=== PATIENT | female | born 1970 | race Two or more races ===

== ENCOUNTER 2018-07-15 12:53 | Emergency (ER) | payer SELFPAY ==
[~2018-07-15] VITALS: Ht 162.6 cm; Wt 74.8 kg
[2018-07-15] MEDS ORDERED: NKM (13:07)
[2018-07-15 13:27] VITALS: BP 140/74
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
[2018-07-15] MEDS ORDERED: IBUPROFEN600 MG ORAL (14:19)
[2018-07-15] MEDS ORDERED: CYCLOBENZAPRINE10 MG ORAL (14:19)
[2018-07-15 14:27] VITALS: BP 145/74
--- NOTE | 2018-07-15 14:29 | NUR ---
ED Discharge Note: Patient is cleared to be discharged per ERMD. Patient awake, alert, oriented x 4. D/C instruction and prescriptions given to patient. All questions were answered. Patient ambulating out with steady gait with all her belongings.
--- NOTE | 2018-07-15 15:31 | Diagnostic Imaging Report ---
Indication: Foot Pain Comparison: None Findings: 3 views of the right foot were obtained. No acute fractures, malalignment, erosions or periostitis are identified. Moderate arthrosis of the first MTP joint demonstrated with joint space narrowing and osteophytes. There is a plantar calcaneal spur present. Soft tissues are unremarkable. Impression: No acute findings.
== END 2018-07-15 14:27 | disposition home or self-care (01) ==
LOC: EMR 13:41
DX: S00.93XA Contusion of unspecified part of head, initial encounter (principal); S40.019A Contusion of unspecified shoulder, initial encounter; M25.571 Pain in right ankle and joints of right foot; V43.52XA Car driver injured in collision with other type car in traffic accident, initial encounter; Y92.410 Unspecified street and highway as the place of occurrence of the external cause
CPT/HCPCS: 99283

== ENCOUNTER 2018-09-28 15:18 | Emergency (ER) | payer SELFPAY ==
[~2018-09-28] VITALS: Ht 162.6 cm; Wt 76.2 kg
[~2018-09-28 15:18] MED LIST: CYCLOBENZAPRINE10 MG ORAL; IBUPROFEN600 MG ORAL; NKM
[2018-09-28 15:40] VITALS: BP 182/85
--- NOTE | 2018-09-28 15:40 | NUR ---
ED Nurse Note: Pt from home walked in due to N/V/D x 1 days. Per pt, she was out of town yesterday and went to [place]. Denies blood in her stools. AAO x4, ambulatory. Good Skin turgor. Family memebr at the bed side.
--- NOTE | 2018-09-28 15:50 | NUR ---
ED Nurse Note: Collected blood/urine then sent.
[2018-09-28] MEDS ORDERED: Metoclopramide 10mg/2ml Inj IVP ONE ×2 (16:00→22:15)
[2018-09-28 16:27] LABS: APPEARANCE,URINE CLOUDY; BILIRUBIN, URINE 1+ (NEGATIVE); COLOR,URINE ORANGE; GLUCOSE, URINE (UA) 4+ (NEGATIVE); HEMATOCRIT 40.9 % (37.0-47.0); HEMOGLOBIN 12.9 G/DL (12.0-16.0); KETONES,URINE 4+ (NEGATIVE); LEUKOCYTE ESTERASE ,URINE 1+ (NEGATIVE); MEAN CORPUSCULAR VOLUME 68 FL (80-99); NITRITE,URINE NEGATIVE (NEGATIVE); PH,URINE 6 (4.5-8.0); PLATELET COUNT 356 K/UL (150-450); PROTEIN,URINE 3+ (NEGATIVE); RED CELL DISTRIBUTION WIDTH 16.7 % (11.6-14.8); UROBILINOGEN,URINE 1 MG/DL (0.0-1.0)
[2018-09-28 16:29] LABS: WHITE BLOOD COUNT 24.7 K/UL (4.8-10.8)
[2018-09-28] MEDS ORDERED: Isovue-300 100ml vial INJ PRN (16:30)
[2018-09-28 16:43] LABS: ALANINE AMINOTRANSFERASE 20 U/L (12-78); ALBUMIN 3.9 G/DL (3.4-5.0); ALBUMIN/GLOBULIN RATIO 0.8 (1.0-2.7); ALKALINE PHOSPHATASE 84 U/L (46-116); ANION GAP 11 mmol/L (5-15); ASPARTATE AMINO TRANSFERASE 25 U/L (15-37); BILIRUBIN,TOTAL 0.6 MG/DL (0.2-1.0); BLOOD UREA NITROGEN 30 mg/dL (7-18); CALCIUM 9.3 MG/DL (8.5-10.1); CARBON DIOXIDE 31 MMOL/L (21-32); CHLORIDE 91 MMOL/L (98-107); SODIUM 133 MMOL/L (136-145)
[2018-09-28 16:47] LABS: POTASSIUM 2.7 MMOL/L (3.5-5.1)
[2018-09-28 16:51] LABS: INR 0.9 (0.9-1.1)
[2018-09-28 17:48] VITALS: BP 158/61
--- NOTE | 2018-09-28 18:59 | NUR ---
ED Nurse Note: Pt taken to CT via wheelchair.
--- NOTE | 2018-09-28 19:11 | NUR ---
HAND-OFF: Report given to Matilda CHEN.
--- NOTE | 2018-09-28 19:30 | NUR ---
ED Nurse Note: Recieved report from am nurse to resume care, pt is currently in imaging department obtaining ct-scan, will resume care of pt and continue to closely monitor.
[2018-09-28 20:00] VITALS: BP 166/72
[2018-09-28] MEDS ORDERED: metroNIDAZOLE 500mg tab ORAL ONE (20:15)
[2018-09-28] MEDS ORDERED: Cefepime HCl 2 GM in D5W 55 ML IVPB ONE (20:15)
--- NOTE | 2018-09-28 20:48 | Emergency Room Report ---
History of Present Illness General Chief Complaint: Nausea, Vomiting, and Diarrhea Source: Patient Present Illness HPI 48-year-old female with no significant past medical history here complaining of acute onset of 1 day of epigastric abdominal pain and multiple bouts of nonbloody emesis. Patient is rating her epigastric pain a 10 out of 10 without radiation. Reports that her symptoms started after she came back from her trip to [place]. Denies fever and chills, shortness of breath, palpitation, headache and dizziness. Denies having her symptoms starting after eating any meals denies drinking alcohol, drug use however is a heavy tobacco smoker. Denies abnormal uterine bleedings patient reports that she is currently on her menses. Has had regular menses. Denies . Patient is actively vomiting and in mild distress. Denies any recent travel outside the country and sick contact. Denies urinary frequency, dysuria, hematuria, flank pain. Denies any past surgical history Allergies: Coded Allergies: No Known Allergies (Unverified , 07/15/18) Patient History Past Medical History: see triage record Past Surgical History: unable to obtain Pertinent Family History: none Last Menstrual Period: 09/28/18 Now: No Immunizations: UTD Reviewed Nursing Documentation: PMH: Agreed; PSxH: Agreed Nursing Documentation-PMH Past Medical History: No Stated History Review of Systems All Other Systems: negative except mentioned in HPI Physical Exam Vital Signs Date Time Temp Pulse Resp B/P (MAP) Pulse Ox O2 Delivery O2 Flow Rate FiO2 09/28/18 15:30 98.4 85 15 185/80 (115) 99 Room Air Sp02 EP Interpretation: reviewed, normal General Appearance: alert, GCS 15, mild distress Head: normocephalic, atraumatic Eyes: bilateral eye normal inspection, bilateral eye PERRL ENT: hearing grossly normal, normal pharynx, no angioedema Neck: normal inspection, full range of motion, supple Respiratory: normal inspection, chest non-tender, lungs clear, normal breath sounds, no rhonchi Cardiovascular #1: normal inspection, normal peripheral pulses, regular rate, rhythm, no edema, no gallop, no murmur Gastrointestinal: normal bowel sounds, non tender, soft, no organomegaly, no peritonitis, no bruit, non-distended, no guarding, no hernia, other - Negative McBurney's, Hernandez's, Rovsing sign Rectal: deferred Genitourinary: no CVA tenderness Musculoskeletal: normal inspection, back normal, digits/nails normal Neurologic: normal inspection, alert, oriented x3, motor strength/tone normal Psychiatric: normal inspection, judgement/insight normal Skin: no rash Lymphatic: normal inspection, no adenopathy Medical Decision Making PA Attestation All diagnoses and treatment plans were reviewed and discussed with my supervising physician Dr. Brennan Diagnostic Impression: Primary Impression: Elevated WBC count Additional Impressions: Hypokalemia UTI (urinary tract infection) ER Course 48-year-old female with no significant past medical history here complaining of acute onset of 1 day of epigastric abdominal pain and multiple bouts of nonbloody emesis. Patient is rating her epigastric pain a 10 out of 10 without radiation. Reports that her symptoms started after she came back from her trip to [place]. Denies fever and chills, shortness of breath, palpitation, headache and dizziness. Denies having her symptoms starting after eating any meals denies drinking alcohol, drug use however is a heavy tobacco smoker. Denies abnormal uterine bleedings patient reports that she is currently on her menses. Has had regular menses. Denies . Patient is actively vomiting and in mild distress. Denies any recent travel outside the country and sick contact. Denies urinary frequency, dysuria, hematuria, flank pain. Denies any past surgical history Ddx considered but are not limited to: appendicitis, cholecystis, gastritis, gastroenteritis, UTI, pyelonephritis, SBO, diverticulitis, influenza with GI manifestation, LA, complication with , elevated white blood count, hypokalemia Vital signs: are WNL, pt. is afebrile H&PE are most consistent with: Hypokalemia, elevated white blood count, UTI patient was explained that her UTI could be the source of her elevated white blood count and is being treated for. ORDERS: abdominal CT, abdominal pain set, EKG, ED INTERVENTIONS: Cefepime, Flagyl, NS bolus, Zofran, Reglan, Pepcid I spoke to the patient noted to be admitted due to elevated white blood count however she did not want to be admitted we gave her antibiotics and monitor her symptoms however all scanning was negative in order to find the source of her elevated white blood count she was advised to be admitted however she refused she can be monitored by her primary care provider in terms of follow-up and take oral antibiotics patient to be discharged in stable at time of discharge. wbc 24, potassium 2.7 EKG Diagnostic Results Rate: normal Rhythm: NSR ST Segments: no acute changes Other Impression no U waves Chest X-Ray Diagnostic Results Chest X-Ray Diagnostic Results : Chest X-Ray Ordered: Yes # of Views/Limited/Complete: 1 View Indication: Other EP Interpretation: Yes PA Xray: Interpretation reviewed, by supervising MD, and agrees with findings. Interpretation: no consolidation, no effusion, no pneumothorax Impression: No acute disease Electronically Signed by: Koko Weems PA-C CT/MRI/US Diagnostic Results CT/MRI/US Diagnostic Results : Imaging Test Ordered: Abdominal CT with contrast Impression Esophagitis, uterine fibroids, accidental finding of adrenal mass in the right side Last Vital Signs Date Time Temp Pulse Resp B/P (MAP) Pulse Ox O2 Delivery O2 Flow Rate FiO2 09/28/18 17:48 98.6 80 16 158/61 98 Room Air Disposition: HOME, SELF-CARE Condition: Stable Referrals: NOT CHOSEN IPA/MD,REFERRING (PCP) Patient Instructions: Nausea and Vomiting, Adult, [id number], Urinary Tract Infection, [id number] Additional Instructions: Take medication as directed follow-up with [facility] regarding her fibroids, 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 If worsening symptoms return to the emergency room at this time the source of your elevated white blood count is most likely secondary to your urinary tract infection you are advised to be admitted to the hospital however you were given antibiotics to treat possible infection and stable to be discharged at this time. Return to the emergency room with worsening symptoms. Koko Almodovar Sep 28, 2018 20:48
[2018-09-28 20:56] LABS: HEMATOCRIT 36.5 % (37.0-47.0); HEMOGLOBIN 11.7 G/DL (12.0-16.0); MEAN CORPUSCULAR VOLUME 68 FL (80-99); PLATELET COUNT 316 K/UL (150-450); RED BLOOD COUNT 5.35 M/UL (4.20-5.40); RED CELL DISTRIBUTION WIDTH 16.8 % (11.6-14.8); WHITE BLOOD COUNT 20.3 K/UL (4.8-10.8)
[2018-09-28 21:11] LABS: INR 0.9 (0.9-1.1)
[2018-09-28 21:12] LABS: CREATINE KINASE 246 U/L (26-308)
[2018-09-28 22:00] VITALS: BP 169/88
[2018-09-28] MEDS ORDERED: REGLAN10 MG ORAL (22:14)
[2018-09-28] MEDS ORDERED: CEPHALEXIN500 MG ORAL (22:14)
--- NOTE | 2018-09-28 22:15 | NUR ---
ED Nurse Note: Pt continues to rest in bed, having vomiting intermittently and b/p increasing, pt denies pain just nausea, no cp, no sob, iv site patent, pt resting in bed quietly, repeat labs drawn and sent as ordered, will continue to monitor while waiting for results and dispo information.
[2018-09-28] MEDS ORDERED: Metoclopramide 10mg/2ml Inj ONE (22:40)
[2018-09-29] VITALS: BP 155/84
--- NOTE | 2018-09-29 | NUR ---
ER DISCHARGE NOTE: Patient is cleared to be discharged per ERMD, pt is aox4, on room air, with stable vital signs. pt was given dc and prescription instructions, pt was able to verbalize understanding, pt id band and iv site removed without complications. pt is able to ambulate with steady gait. pt took all belongings.
--- NOTE | 2018-09-29 14:06 | Diagnostic Imaging Report ---
Indication: Chest pain Technique: One view of the chest Comparison: none Findings: Lungs and pleural spaces are clear. Heart size is normal. Impression: No acute process
--- NOTE | 2018-09-29 14:21 | Diagnostic Imaging Report ---
Clinical Indication: Abdominal pain, nausea, vomiting, diarrhea Technique: Patient given oral contrast. IV administration nonionic contrast. Venous phase spiral acquisition obtained through the abdomen and pelvis. Multiplanar reconstructions were generated. Total dose length product 957.88 mGycm. CTDIvol(s) 15.91 mGy. Dose reduction achieved using automated exposure control Comparison: none Findings: The appendix is normal. There are a few colonic diverticula. No evidence of diverticulitis. No small bowel distention or small bowel wall thickening. There is equivocal mild wall thickening of the distal esophagus. The stomach and duodenum are unremarkable. The liver is mildly hypoattenuating, consistent with fatty change. The gallbladder, bile ducts, pancreas, spleen, left adrenal are unremarkable. There is a 2.1 cm right adrenal mass. This demonstrates nonspecific attenuation. There are bilateral renal cysts. There are also bilateral subcentimeter low-attenuation renal lesions which are too small to characterize. No renal or ureteral calculi, hydronephrosis, or hydroureter demonstrated. The uterus is somewhat enlarged. It contains a 4.4 cm low-attenuation mass. In the left side of the myometrium. No adnexal mass. The ovaries are unremarkable. The included lung bases are clear. The bones demonstrate degenerative spondylosis changes of the lumbosacral junction. Impression: No acute abnormality Mild distal esophageal wall thickening, could indicate esophagitis. Consider endoscopy Hypoattenuating liver consistent with fatty change 2.1 cm right adrenal mass. Most likely a benign adenoma. Recommend further evaluation with adrenal protocol MRI for CT 4.4 cm low-attenuation mass within the uterine myometrium on the left, probably a degenerated fibroid Bilateral renal cysts. Bilateral subcentimeter low-attenuation renal lesions, too small to characterize, most likely benign simple cysts. No further follow-up necessary Other findings as noted, including degenerative lumbosacral spondylosis This agrees with the preliminary interpretation provided overnight by Dr. Lee The CT scanner at [facility] is accredited by the [employer] and the scans are performed using protocols designed to limit radiation exposure to as low as reasonably achievable to attain images of sufficient resolution adequate for diagnostic evaluation.
== END 2018-09-29 | disposition home or self-care (01) ==
LOC: EMR 16:10
DX: D72.829 Elevated white blood cell count, unspecified (principal); E87.6 Hypokalemia; N39.0 Urinary tract infection, site not specified; R11.2 Nausea with vomiting, unspecified; R10.13 Epigastric pain; R11.10 Vomiting, unspecified
CPT/HCPCS: 36415; 71045; 74177; 80053; 80307; 81003; 81025; 82550; 83605; 83690; 84484; 85007; 85025; 85610; 85730; 86850; 86900; 86901; 87040; 87086; 87181; 93005; 96361; 96365; 96375; 96376; 99284; G0480; J2405; J2765; Q9967; S0028; 80329; J8499

== ENCOUNTER 2018-10-01 23:27 | Inpatient (IN) | payer MEDICAID ==
[~2018-10-01] VITALS: Ht 162.6 cm; Wt 71.8 kg
[~2018-10-01 23:27] MED LIST changes: +CEPHALEXIN500 MG ORAL; +REGLAN10 MG ORAL
[2018-10-01 23:45] VITALS: BP 137/85
--- NOTE | 2018-10-01 23:45 | NUR ---
ED Nurse Note: Patient walked in to ER c/o lower abdominal pain N/V/D. Stated that was here 3 days ago for the same reason, but left AMA because of family emergency. AAO x4, VSS at this time, skin is dry warm to touch. ER MD by bed side.
[2018-10-02] VITALS (7 sets, daily range): BP systolic 135–179; BP diastolic 82–98
[2018-10-02 00:27] LABS: BASOPHILS % (AUTO) 0.6 % (0.0-2.0); EOSINOPHILS % (AUTO) 0.3 % (0.0-3.0); HEMATOCRIT 45.4 % (37.0-47.0); HEMOGLOBIN 14.6 G/DL (12.0-16.0); LYMPHOCYTES % (AUTO) 27.2 % (20.0-45.0); MEAN CORPUSCULAR VOLUME 68 FL (80-99); MONOCYTES % (AUTO) 6.9 % (1.0-10.0); PLATELET COUNT 374 K/UL (150-450); RED BLOOD COUNT 6.64 M/UL (4.20-5.40); RED CELL DISTRIBUTION WIDTH 16.8 % (11.6-14.8); WHITE BLOOD COUNT 10.5 K/UL (4.8-10.8)
[2018-10-02 00:37] LABS: ALANINE AMINOTRANSFERASE 21 U/L (12-78); ALBUMIN 3.8 G/DL (3.4-5.0); ALBUMIN/GLOBULIN RATIO 0.8 (1.0-2.7); ALKALINE PHOSPHATASE 82 U/L (46-116); ANION GAP 12 mmol/L (5-15); ASPARTATE AMINO TRANSFERASE 18 U/L (15-37); BILIRUBIN,TOTAL 0.7 MG/DL (0.2-1.0); BLOOD UREA NITROGEN 20 mg/dL (7-18); CALCIUM 9.2 MG/DL (8.5-10.1); CARBON DIOXIDE 29 MMOL/L (21-32); CHLORIDE 91 MMOL/L (98-107); CREATININE 0.9 MG/DL (0.55-1.30); POTASSIUM 2.8 MMOL/L (3.5-5.1); SODIUM 133 MMOL/L (136-145)
--- NOTE | 2018-10-02 00:50 | Emergency Room Report ---
History of Present Illness General Chief Complaint: Vomiting Source: Patient Present Illness HPI 48-year-old female presents ED for evaluation. Walked in complaining of abdominal pain with vomiting. Was seen here on 09/28 for same problem. Was subsequently treated and discharged with antibiotics and nausea medicine. States that her nausea has not resolved and she is unable to take her medications. Denies fevers or chills. Denies chest pain. States pain is epigastric, burning, 5 out of 10, nonradiating. No other aggravating relieving factors. Denies any other associated symptoms Allergies: Coded Allergies: No Known Allergies (Unverified , 07/15/18) Patient History Past Medical History: none Past Surgical History: none Pertinent Family History: none Social History: Denies: smoking, alcohol use, drug use Last Menstrual Period: 09/28/18 Now: No Immunizations: UTD Reviewed Nursing Documentation: PMH: Agreed; PSxH: Agreed Nursing Documentation-PMH Past Medical History: No Stated History Review of Systems All Other Systems: negative except mentioned in HPI Physical Exam Vital Signs Date Time Temp Pulse Resp B/P (MAP) Pulse Ox O2 Delivery O2 Flow Rate FiO2 10/01/18 23:31 99.0 96 16 137/85 (102) 100 Room Air Sp02 EP Interpretation: reviewed, normal General Appearance: no apparent distress, alert, GCS 15, non-toxic Head: normocephalic, atraumatic Eyes: bilateral eye normal inspection, bilateral eye PERRL ENT: hearing grossly normal, normal pharynx, no angioedema, normal voice Neck: full range of motion, supple/symm/no masses Respiratory: chest non-tender, lungs clear, normal breath sounds, speaking full sentences Cardiovascular #1: regular rate, rhythm, no edema Cardiovascular #2: 2+ carotid (R), 2+ carotid (L), 2+ radial (R), 2+ radial (L) , 2+ dorsalis pedis (R), 2+ dorsalis pedis (L) Gastrointestinal: normal bowel sounds, non tender, soft, non-distended, no guarding, no rebound Rectal: deferred Genitourinary: normal inspection, no CVA tenderness Musculoskeletal: back normal, gait/station normal, normal range of motion, non- tender Neurologic: alert, oriented x3, responsive, motor strength/tone normal, sensory intact, speech normal Psychiatric: judgement/insight normal, memory normal, mood/affect normal, no suicidal/homicidal ideation Reflexes: 3+ bicep (R), 3+ bicep (L), 3+ tricep (R), 3+ tricep (L), 3+ knee (R) , 3+ knee (L) Lymphatic: no adenopathy Medical Decision Making Diagnostic Impression: Primary Impression: Intractable vomiting Qualified Codes: G43.A1 - Cyclical vomiting, intractable Additional Impression: Hypokalemia ER Course Hospital Course 48-year-old F presents to ED with epigastric pain with N/V. differential diagnosis: gastritis, dehydration, cyclical vomiting Clinical course Patient placed on stretcher. On diagnostic cardiac sonographer. After initial history and physical I ordered labs, IV fluids, zofran, pepicd Labs - no leukocytosis, K 2.8, LFTs normal attempted to replete potassium orally but patient continues to vomit. Reviewed EMR patient was seen here on 09/28 for similar presentation. Had significant leukocytosis at the time. Had a work-up which included chest x-ray and CT which were negative. UA positive for UTI. Positive THC Patient given additional medications here. Continues to vomit despite medication. Will admit. given rocephin for continued treatment of UTI diagnosed on prior visit Dr Pinto will admit this patient I feel this is a highly complex case requiring extensive working including EKG/ Rhythm strip, Xray/CT/US, Blood/urine lab work, repeat exams while in ED, and administration of strong opiates/narcotics for pain control, admission to hospital or close patient follow up. Diagnosis - intractable vomiting, hypokalemia Admitted to floor in serious condition Labs Test 10/02/18 00:00 White Blood Count 10.5 K/UL (4.8-10.8) Red Blood Count 6.64 M/UL (4.20-5.40) Hemoglobin 14.6 G/DL (12.0-16.0) Hematocrit 45.4 % (37.0-47.0) Mean Corpuscular Volume 68 FL (80-99) Mean Corpuscular Hemoglobin 22.1 PG (27.0-31.0) Mean Corpuscular Hemoglobin Concent 32.3 G/DL (32.0-36.0) Red Cell Distribution Width 16.8 % (11.6-14.8) Platelet Count 374 K/UL (150-450) Mean Platelet Volume 7.5 FL (6.5-10.1) Neutrophils (%) (Auto) 65.0 % (45.0-75.0) Lymphocytes (%) (Auto) 27.2 % (20.0-45.0) Monocytes (%) (Auto) 6.9 % (1.0-10.0) Eosinophils (%) (Auto) 0.3 % (0.0-3.0) Basophils (%) (Auto) 0.6 % (0.0-2.0) Sodium Level 133 MMOL/L (136-145) Potassium Level 2.8 MMOL/L (3.5-5.1) Chloride Level 91 MMOL/L (98-107) Carbon Dioxide Level 29 MMOL/L (21-32) Anion Gap 12 mmol/L (5-15) Blood Urea Nitrogen 20 mg/dL (7-18) Creatinine 0.9 MG/DL (0.55-1.30) Estimat Glomerular Filtration Rate > 60 mL/min (>60) Glucose Level 233 MG/DL (74-106) Calcium Level 9.2 MG/DL (8.5-10.1) Total Bilirubin 0.7 MG/DL (0.2-1.0) Aspartate Amino Transf (AST/SGOT) 18 U/L (15-37) Alanine Aminotransferase (ALT/SGPT) 21 U/L (12-78) Alkaline Phosphatase 82 U/L (46-116) Total Protein 8.4 G/DL (6.4-8.2) Albumin 3.8 G/DL (3.4-5.0) Globulin 4.6 g/dL Albumin/Globulin Ratio 0.8 (1.0-2.7) Lipase 116 U/L (73-393) Last Vital Signs Date Time Temp Pulse Resp B/P (MAP) Pulse Ox O2 Delivery O2 Flow Rate FiO2 10/01/18 23:45 99.0 16 137/85 100 Room Air 10/01/18 23:45 96 Status: improved Disposition: ADMITTED INPATIENT Condition: Serious Referrals: NOT CHOSEN IPA/,REFERRING (PCP) Otoniel Capps MD Oct 02, 2018 00:50
--- NOTE | 2018-10-02 01:02 | NUR ---
ED Nurse Note: Administered 40 mEq of potassium,but patient was not able to hold it.
--- NOTE | 2018-10-02 01:10 | NUR ---
ED Nurse Note: Patient refused straight cath, stated rthat is going to pee later.
[2018-10-02] MEDS ORDERED: NS w/KCl 40mEq 1,000 ML IV SCH (01:15)
[2018-10-02] MEDS ORDERED: cefTRIAXone 1 GM in NS 55 ML IVPB ONE (01:45)
--- NOTE | 2018-10-02 02:15 | NUR ---
ED Nurse Note: Patient was admited to MS due to abdominal pain,N/V, hypokalemia. Patient was transfered to the unit via gurney, with all belongings. AAO x4, VSS at this time, skin is dry warm to touch.
--- NOTE | 2018-10-02 03:02 | NUR ---
NURSE NOTES: PATIENT IN BED, AOX4. IV IN PLACE, PATENT. PATIENT VOMITING. PATIENTS DENIES ANY FEELING OF PAIN. REVIEWED PATIENT BELONGINGS - $200 [place], DEBIT CARD, ID; PATIENT REFUSED TO HAVE VALUABLES PLACED IN SAFE AND PATIENT SIGNED BELONGINGS LIST. PATIENT DENIES HAVING ANY MEDICAL HISTORY. REVIEWED PATIENT MEDICATIONS KEFLEX 500 MG Q6HR AND REGLAN 10 MG TID AND WHEN NURSE SAID THE MEDICATIONS CAN BE PLACE DIN THE HOSPITAL PHARMACY, PATIENT STATED SHE CAN HAVE SOMEONE TAKE HER MEDICATIONS TOMORROW AM. NURSE EXPLAINED TO NOT TAKE ANY HOME MEDICATION WHILE IN THE HOSPITAL, PATIENT VERBALIZED UNDERSTANDING. LEFT MESSAGE FOR DR. Sukhdev CRENSHAW, RECEIVED ORDERS ONLY FOR DIET, IV FLUIDS, AND ZOFRAN PRN. PER MD, HE WILL PUT IN MORE ORDERS LATER. BED IN LOWEST POSITION, CALL LIGHT WITHIN REACH. WILL CONTINUE TO MONITOR.
[2018-10-02] MEDS: D5 1/2NS w/KCl 40meq 1000ml 1,000 ML IV SCH ×3 (03:44→22:52)
--- NOTE | 2018-10-02 06:53 | NUR ---
NURSE NOTES: Received report GUSTAVO Hedrick. Pt in bed, asleep, no apparent distress noted, no active vomiting at this time, bed in lowest position, call light within reach.
--- NOTE | 2018-10-02 07:07 | NUR ---
HAND-OFF: Report given to NERY OLSEN RN.
--- NOTE | 2018-10-02 11:16 | NUR ---
NURSE NOTES: Provided pt with urine specimen cup and provided education to pt regarding clean catch procedure. Pt will notify RN when specimen is collected Addendum: 10/02/18 at 1226 by NERY OLSEN RN NURSE NOTES: Urine specimen collected and sent to lab at 1225 for UA and Drug Screen
--- NOTE | 2018-10-02 12:17 | History & Physical ---
History and Physical History & Physicial HP dictated # [id number] Kvng Pinto MD Oct 02, 2018 12:17
[2018-10-02 13:08] LABS: APPEARANCE,URINE SLIGHTLY CLOUDY; BILIRUBIN, URINE NEGATIVE (NEGATIVE); GLUCOSE, URINE (UA) 4+ (NEGATIVE); KETONES,URINE 3+ (NEGATIVE); LEUKOCYTE ESTERASE ,URINE 1+ (NEGATIVE); NITRITE,URINE NEGATIVE (NEGATIVE); PH,URINE 8 (4.5-8.0); PROTEIN,URINE 1+ (NEGATIVE); UROBILINOGEN,URINE 4 MG/DL (0.0-1.0)
[2018-10-02 13:20] LABS: COLOR,URINE YELLOW
--- NOTE | 2018-10-02 16:46 | NUR ---
CASE MANAGEMENT: REVIEW 48Y/F PRESENTED TO ED CC: N/V . LUQ ABD PAIN SI: INTRACTABLE VOMITING . HYPOKALEMIA T 99.0 HR 96 RR 16 BP 137/85 SAT 100% ROOM AIR NA 133 K 2.8 GLUCOSE 233 TOX: + THC IS: CEFTRIAXONE IV X1 NS w/KCl 40MEQ IV X1 K-DUR 40MEQ PO X1 ZOFRAN IV X1 PEPCID IV X1 NS IVF BOLUS X1 NPO PATIENT ADMITTED TO MED/SURG UNIT 10/01/2018 DCP: PATIENT IS FROM HOME
--- NOTE | 2018-10-02 18:00 | History and Physical Report ---
DATE OF ADMISSION: 10/02/2018 CHIEF COMPLAINT: Abdominal pain and vomiting. HISTORY OF PRESENT ILLNESS: This is a 48-year-old female. She was in [place] on vacation when she started to have abdominal pain and vomiting. She came back to [place], she was seen in the emergency room on 09/28/2018, and was subsequently treated and discharged with antibiotics and nausea medications. However, the symptoms did not improve and she came to the emergency room again last night with basically epigastric pain and continuous vomiting. She never had similar episodes in the past. She denies history of any heavy alcohol abuse although she said she took 2 Tequila shots on the day when her symptoms started. PAST MEDICAL HISTORY: Unremarkable. MEDICATIONS: Reviewed. ALLERGIES: No known drug allergies. SOCIAL HISTORY: The patient lives at home. She is never , but has 2 kids. She has an adult kid and a teenager. She denies history of smoking or alcohol abuse. REVIEW OF SYSTEMS: Noncontributory except above. PHYSICAL EXAMINATION: GENERAL: The patient is a 48-year-old female, in no acute distress. VITAL SIGNS: Blood pressure is 179/88, pulse 75, and temperature 98.1. HEENT: [place] conjunctivae. Anicteric sclerae. NECK: Supple. LUNGS: Clear to auscultation. HEART: S1, S2 without murmurs or rubs. ABDOMEN: Soft. There is some tenderness in the left upper quadrant. EXTREMITIES: No cyanosis or edema. LABORATORY FINDINGS: The chemistry panel shows serum sodium 133,, potassium 2.8, chloride 91, BUN is 20, and creatinine 0.9. Albumin is 3.8. CBC shows a WBC of 10,500, hematocrit is 45.4, hemoglobin is 14.6, and platelet is 374,000. ASSESSMENT: This is a 48-year-old female, who was admitted with abdominal pain, nausea, and vomiting, possible epigastric gastritis or peptic ulcer disease. She did have some diarrhea a couple of days when it started, so acute gastroenteritis or infection cannot be completely ruled out. She has also hypokalemia and her blood pressure is elevated. PLAN: The patient is NPO. She is on IV fluids with repletion of potassium. She was started on antiemetics, Zofran and also Pepcid will be started. The patient will be seen by manager environmental services. Laboratories will be followed and further adjustment will be made in the patient's regimen. Kvng Pinto M.D. DR: YUNI JOB#: [id number] CC:
--- NOTE | 2018-10-02 18:56 | NUR ---
HAND-OFF: Report given to GUSTAVO Nation.
--- NOTE | 2018-10-02 19:48 | NUR ---
NURSE NOTES: Pt received asleep in bed, able to make needs known, received report that patient has been vomiting, will continue to monitor.
--- NOTE | 2018-10-02 20:23 | General Progress Note ---
Assessment/Plan Problem List: (1) DM (diabetes mellitus) ICD Codes: E11.9 - Type 2 diabetes mellitus without complications SNOMED: 89508010 (2) Cannabinoid hyperemesis syndrome ICD Codes: F12.988 - Cannabis use, unspecified with other cannabis-induced disorder SNOMED: 786294007, 682523851 (3) UTI (urinary tract infection) ICD Codes: N39.0 - Urinary tract infection, site not specified SNOMED: 74285972 (4) Intractable vomiting ICD Codes: R11.10 - Vomiting, unspecified SNOMED: 011871087 Qualifiers: Qualified Codes: G43.A1 - Cyclical vomiting, intractable Assessment/Plan: DDX for vomiting is UTI, Cannabinoid, GERD, gastroparesis reglan abx ppi check labs in am start clears Subjective ROS Limited/Unobtainable: Yes Allergies: Coded Allergies: No Known Allergies (Unverified , 07/15/18) Objective Last 24 Hour Vital Signs Date Time Temp Pulse Resp B/P (MAP) Pulse Ox O2 Delivery O2 Flow Rate FiO2 10/02/18 15:58 98.3 80 18 164/93 (116) 99 10/02/18 13:35 75 179/88 10/02/18 11:54 98.1 75 17 179/88 (118) 100 10/02/18 08:39 Room Air 10/02/18 08:00 97.2 73 18 172/92 (118) 99 10/02/18 04:00 98.4 75 18 100 10/02/18 02:49 Room Air 10/02/18 02:43 98.0 85 18 171/98 (122) 100 10/02/18 02:15 99.0 68 16 135/82 100 Room Air 10/02/18 02:15 99.0 68 16 145/82 100 Room Air 10/02/18 01:45 99.0 68 16 145/82 100 Room Air 10/01/18 23:45 99.0 16 137/85 100 Room Air 10/01/18 23:45 96 16 Room Air 10/01/18 23:31 99.0 96 16 137/85 (102) 100 Room Air Intake and Output 10/01/18 10/02/18 19:00 07:00 Intake Total 200 ml Balance 200 ml IV Total 200 ml # Voids 1 Laboratory Tests 10/02/18 00:00: White Blood Count 10.5, Red Blood Count 6.64H, Hemoglobin 14.6, Hematocrit 45.4 , Mean Corpuscular Volume 68L, Mean Corpuscular Hemoglobin 22.1L, Mean Corpuscular Hemoglobin Concent 32.3, Red Cell Distribution Width 16.8H, Platelet Count 374, Mean Platelet Volume 7.5, Neutrophils (%) (Auto) 65.0, Lymphocytes (%) (Auto) 27.2, Monocytes (%) (Auto) 6.9, Eosinophils (%) (Auto) 0.3, Basophils (%) (Auto) 0.6, Sodium Level 133L, Potassium Level 2.8L, Chloride Level 91L, Carbon Dioxide Level 29, Anion Gap 12, Blood Urea Nitrogen 20H, Creatinine 0.9, Estimat Glomerular Filtration Rate > 60, Glucose Level 233H , Calcium Level 9.2, Total Bilirubin 0.7, Aspartate Amino Transf (AST/SGOT) 18, Alanine Aminotransferase (ALT/SGPT) 21, Alkaline Phosphatase 82, Total Protein 8.4H, Albumin 3.8, Globulin 4.6, Albumin/Globulin Ratio 0.8L, Lipase 116 10/02/18 12:16: Urine Color Yellow, Urine Appearance Slightly cloudy, Urine pH 8, Urine Specific [place] 1.010, Urine Protein 1+H, Urine Glucose (UA) 4+H, Urine Ketones 3+H, Urine Blood 5+H, Urine Nitrite Negative, Urine Bilirubin Negative, Urine Urobilinogen 4H, Urine Leukocyte Esterase 1+H, Urine RBC 5-10H, Urine WBC 5-10H, Urine Squamous Epithelial Cells Few, Urine Amorphous Sediment ModerateH, Urine Bacteria Few, Urine Opiates Screen Negative, Urine Barbiturates Screen Negative, Phencyclidine (PCP) Screen Negative, Urine Amphetamines Screen Negative, Urine Benzodiazepines Screen Negative, Urine Cocaine Screen Negative, Urine Marijuana (THC) Screen PositiveH Height (Feet): 5 Height (Inches): 4.00 Weight (Pounds): 163 General Appearance: alert EENT: normal ENT inspection Neck: supple Cardiovascular: normal rate Respiratory/Chest: decreased breath sounds Abdomen: normal bowel sounds, non tender, soft Extremities: non-tender uGillermo Dwyer MD Oct 02, 2018 20:23
[2018-10-02] MEDS ORDERED: Metoclopramide 10mg/2ml Inj IVP PRN (20:30)
[2018-10-03] VITALS: BP 143/84
[2018-10-03 04:00] VITALS: BP 156/77
[2018-10-03 07:02] LABS: BASOPHILS % (AUTO) 0.7 % (0.0-2.0); EOSINOPHILS % (AUTO) 1.2 % (0.0-3.0); HEMATOCRIT 37.2 % (37.0-47.0); HEMOGLOBIN 11.8 G/DL (12.0-16.0); LYMPHOCYTES % (AUTO) 31.3 % (20.0-45.0); MEAN CORPUSCULAR VOLUME 70 FL (80-99); MONOCYTES % (AUTO) 7.7 % (1.0-10.0); NEUTROPHILS % (AUTO) 59.1 % (45.0-75.0); PLATELET COUNT 294 K/UL (150-450); RED BLOOD COUNT 5.32 M/UL (4.20-5.40); RED CELL DISTRIBUTION WIDTH 17.4 % (11.6-14.8); WHITE BLOOD COUNT 10.1 K/UL (4.8-10.8)
[2018-10-03 07:06] LABS: ALANINE AMINOTRANSFERASE 14 U/L (12-78); ALBUMIN 2.7 G/DL (3.4-5.0); ALBUMIN/GLOBULIN RATIO 0.8 (1.0-2.7); ALKALINE PHOSPHATASE 58 U/L (46-116); ANION GAP 7 mmol/L (5-15); ASPARTATE AMINO TRANSFERASE 18 U/L (15-37); BILIRUBIN,TOTAL 0.4 MG/DL (0.2-1.0); BLOOD UREA NITROGEN 5 mg/dL (7-18); CARBON DIOXIDE 26 MMOL/L (21-32); CHLORIDE 99 MMOL/L (98-107); CREATININE 0.7 MG/DL (0.55-1.30); POTASSIUM 3.5 MMOL/L (3.5-5.1); SODIUM 131 MMOL/L (136-145)
[2018-10-03 07:11] LABS: AMYLASE 50 U/L (25-115)
--- NOTE | 2018-10-03 07:21 | NUR ---
HAND-OFF: Report given to GUSTAVO Don.
--- NOTE | 2018-10-03 07:58 | NUR ---
NURSE NOTES: patient received in stable condition, awake in bed, eating breakfast. Alert and oriented, responds appropriately. Breathing unlabored on room air. Denies pain or SOB at this time. IV site on right hand patent and intact running fluids at 100cc/hr. Denies nausea at this time. Call light placed within reach. Bed locked in lowest position. Will continue to monitor.
[2018-10-03 08:00] VITALS: BP 148/82
[2018-10-03] MEDS: D5 1/2NS w/KCl 40meq 1000ml 1,000 ML IV SCH ×2 (08:29→13:54)
--- NOTE | 2018-10-03 11:54 | GI Progress Note ---
Assessment/Plan Problems: (1) Cannabinoid hyperemesis syndrome ICD Codes: F12.988 - Cannabis use, unspecified with other cannabis-induced disorder SNOMED: 059227215, 745062492 (2) Intractable vomiting ICD Codes: R11.10 - Vomiting, unspecified SNOMED: 908887940 Qualifiers: Qualified Codes: G43.A1 - Cyclical vomiting, intractable (3) DM (diabetes mellitus) ICD Codes: E11.9 - Type 2 diabetes mellitus without complications SNOMED: 99584151 Status: stable Status Narrative Discussed with Dr. Dwyer. Assessment/Plan DDX for vomiting is UTI, Cannabinoid, GERD, gastroparesis okay for DC per GI standpoint if tolerates lunch reglan abx ppi zofran prn outpatient GI procedures The patient was seen and examined at bedside and all new and available data was reviewed in the patients chart. I agree with the above findings, impression and plan. (Patient seen earlier today. Signature stamp does not reflect patient encounter time.). - Guillermo Dwyer MD Subjective Gastrointestinal/Abdominal: Reports: no symptoms Objective Last 24 Hour Vital Signs Date Time Temp Pulse Resp B/P (MAP) Pulse Ox O2 Delivery O2 Flow Rate FiO2 10/03/18 09:00 Room Air 10/03/18 08:24 68 156/77 10/03/18 08:00 97.5 73 18 148/82 (104) 100 10/03/18 04:00 98.4 68 24 156/77 (103) 100 10/03/18 00:00 98.1 75 18 143/84 (103) 100 10/02/18 21:00 Room Air 10/02/18 20:00 98.0 69 17 165/87 (113) 99 10/02/18 15:58 98.3 80 18 164/93 (116) 99 10/02/18 13:35 75 179/88 Intake and Output 10/02/18 10/03/18 18:59 06:59 Intake Total 120 ml 1420 ml Output Total 5 ml Balance 115 ml 1420 ml Intake Oral 120 ml 120 ml IV Total 1300 ml Output Emesis 5 ml # Voids 6 2 Laboratory Tests Test 10/02/18 12:16 10/03/18 06:25 Urine Color Yellow Urine Appearance Slightly cloudy Urine pH 8 (4.5-8.0) Urine Specific [place] 1.010 (1.005-1.035) Urine Protein 1+ (NEGATIVE) H Urine Glucose (UA) 4+ (NEGATIVE) H Urine Ketones 3+ (NEGATIVE) H Urine Blood 5+ (NEGATIVE) H Urine Nitrite Negative (NEGATIVE) Urine Bilirubin Negative (NEGATIVE) Urine Urobilinogen 4 MG/DL (0.0-1.0) H Urine Leukocyte Esterase 1+ (NEGATIVE) H Urine RBC 5-10 /HPF (0 - 2) H Urine WBC 5-10 /HPF (0 - 2) H Urine Squamous Epithelial Cells Few /LPF (NONE/OCC) Urine Amorphous Sediment Moderate /LPF (NONE) H Urine Bacteria Few /HPF (NONE) Urine Opiates Screen Negative (NEGATIVE) Urine Barbiturates Screen Negative (NEGATIVE) Phencyclidine (PCP) Screen Negative (NEGATIVE) Urine Amphetamines Screen Negative (NEGATIVE) Urine Benzodiazepines Screen Negative (NEGATIVE) Urine Cocaine Screen Negative (NEGATIVE) Urine Marijuana (THC) Screen Positive (NEGATIVE) H White Blood Count 10.1 K/UL (4.8-10.8) Red Blood Count 5.32 M/UL (4.20-5.40) Hemoglobin 11.8 G/DL (12.0-16.0) L Hematocrit 37.2 % (37.0-47.0) Mean Corpuscular Volume 70 FL (80-99) L Mean Corpuscular Hemoglobin 22.1 PG (27.0-31.0) L Mean Corpuscular Hemoglobin Concent 31.7 G/DL (32.0-36.0) L Red Cell Distribution Width 17.4 % (11.6-14.8) H Platelet Count 294 K/UL (150-450) Mean Platelet Volume 7.6 FL (6.5-10.1) Neutrophils (%) (Auto) 59.1 % (45.0-75.0) Lymphocytes (%) (Auto) 31.3 % (20.0-45.0) Monocytes (%) (Auto) 7.7 % (1.0-10.0) Eosinophils (%) (Auto) 1.2 % (0.0-3.0) Basophils (%) (Auto) 0.7 % (0.0-2.0) Sodium Level 131 MMOL/L (136-145) L Potassium Level 3.5 MMOL/L (3.5-5.1) Chloride Level 99 MMOL/L (98-107) Carbon Dioxide Level 26 MMOL/L (21-32) Anion Gap 7 mmol/L (5-15) Blood Urea Nitrogen 5 mg/dL (7-18) L Creatinine 0.7 MG/DL (0.55-1.30) Estimat Glomerular Filtration Rate > 60 mL/min (>60) Glucose Level 259 MG/DL (74-106) H Calcium Level 8.0 MG/DL (8.5-10.1) L Magnesium Level 1.8 MG/DL (1.8-2.4) Total Bilirubin 0.4 MG/DL (0.2-1.0) Aspartate Amino Transf (AST/SGOT) 18 U/L (15-37) Alanine Aminotransferase (ALT/SGPT) 14 U/L (12-78) Alkaline Phosphatase 58 U/L (46-116) Total Protein 6.3 G/DL (6.4-8.2) L Albumin 2.7 G/DL (3.4-5.0) L Globulin 3.6 g/dL Albumin/Globulin Ratio 0.8 (1.0-2.7) L Amylase Level 50 U/L (25-115) Lipase 113 U/L (73-393) Microbiology Date/Time Source Procedure Growth Status 10/02/18 12:16 Urine,Clean Catch Urine Culture - Preliminary NO GROWTH Resulted Height (Feet): 5 Height (Inches): 4.00 Weight (Pounds): 163 General Appearance: WD/WN, no apparent distress, alert Cardiovascular: normal rate Respiratory/Chest: normal breath sounds, no respiratory distress Abdominal Exam: normal bowel sounds, non tender, soft Extremities: normal range of motion, non-tender Francheska Alejandro AUTO PORTER Oct 03, 2018 11:54
[2018-10-03 12:00] VITALS: BP 158/80
--- NOTE | 2018-10-03 15:44 | General Progress Note ---
Assessment/Plan Problem List: (1) DM (diabetes mellitus) ICD Codes: E11.9 - Type 2 diabetes mellitus without complications SNOMED: 60407692 (2) Cannabinoid hyperemesis syndrome ICD Codes: F12.988 - Cannabis use, unspecified with other cannabis-induced disorder SNOMED: 994468681, 040541615 (3) Intractable vomiting ICD Codes: R11.10 - Vomiting, unspecified SNOMED: 549894764 Qualifiers: Qualified Codes: G43.A1 - Cyclical vomiting, intractable (4) UTI (urinary tract infection) ICD Codes: N39.0 - Urinary tract infection, site not specified SNOMED: 00639201 (5) Hypokalemia ICD Codes: E87.6 - Hypokalemia SNOMED: 12590899 Status: stable Assessment/Plan: Po cipro SSI check A1C IVF Subjective Allergies: Coded Allergies: No Known Allergies (Unverified , 07/15/18) Subjective Pt did not tolerate reg food Objective Last 24 Hour Vital Signs Date Time Temp Pulse Resp B/P (MAP) Pulse Ox O2 Delivery O2 Flow Rate FiO2 10/03/18 12:00 97.9 66 18 158/80 (106) 100 10/03/18 09:00 Room Air 10/03/18 08:24 68 156/77 10/03/18 08:00 97.5 73 18 148/82 (104) 100 10/03/18 04:00 98.4 68 24 156/77 (103) 100 10/03/18 00:00 98.1 75 18 143/84 (103) 100 10/02/18 21:00 Room Air 10/02/18 20:00 98.0 69 17 165/87 (113) 99 10/02/18 15:58 98.3 80 18 164/93 (116) 99 Intake and Output 10/02/18 10/03/18 18:59 06:59 Intake Total 120 ml 1420 ml Output Total 5 ml Balance 115 ml 1420 ml Intake Oral 120 ml 120 ml IV Total 1300 ml Output Emesis 5 ml # Voids 6 2 Laboratory Tests 10/03/18 06:25: White Blood Count 10.1, Red Blood Count 5.32, Hemoglobin 11.8L, Hematocrit 37.2 , Mean Corpuscular Volume 70L, Mean Corpuscular Hemoglobin 22.1L, Mean Corpuscular Hemoglobin Concent 31.7L, Red Cell Distribution Width 17.4H, Platelet Count 294, Mean Platelet Volume 7.6, Neutrophils (%) (Auto) 59.1, Lymphocytes (%) (Auto) 31.3, Monocytes (%) (Auto) 7.7, Eosinophils (%) (Auto) 1.2, Basophils (%) (Auto) 0.7, Sodium Level 131L, Potassium Level 3.5, Chloride Level 99, Carbon Dioxide Level 26, Anion Gap 7, Blood Urea Nitrogen 5L, Creatinine 0.7, Estimat Glomerular Filtration Rate > 60, Glucose Level 259H, Calcium Level 8.0L, Magnesium Level 1.8, Total Bilirubin 0.4, Aspartate Amino Transf (AST/SGOT) 18, Alanine Aminotransferase (ALT/SGPT) 14, Alkaline Phosphatase 58, Total Protein 6.3L, Albumin 2.7L, Globulin 3.6, Albumin/ Globulin Ratio 0.8L, Amylase Level 50, Lipase 113 Height (Feet): 5 Height (Inches): 4.00 Weight (Pounds): 163 Cardiovascular: normal rate Respiratory/Chest: lungs clear Abdomen: non tender, soft Kvng Pinto MD Oct 03, 2018 15:44
[2018-10-03 16:00] VITALS: BP 153/85
[2018-10-03] MEDS: NovoLOG Insulin Flexpen SUBQ SCH ×2 (16:30→21:53)
--- NOTE | 2018-10-03 18:56 | NUR ---
CASE MANAGEMENT: REVIEW SI: INTRACTABLE VOMITING . CANNABINOID HYPEREMESIS SYNDROME T 97.5 HR 73 RR 18 BP 156/77 SAT 100% ROOM AIR NA 131 GLUCOSE 259 TOTAL PROTEIN 6.3 ALBUMIN 2.7 IS: D5 1/2 NS w/KCl 40MEQ IVF @100ML/HR PROTONIX PO QD REGLAN IV Q8HR PRN ZOFRAN IV Q4HR PRN REG PO DIET MED/SURG STATUS DCP: PATIENT IS FROM HOME
--- NOTE | 2018-10-03 19:15 | NUR ---
NURSE NOTES: Received a report from Florencia Tate RN. Pt is in stable condition. AAOX4. Able to make needs known. On room air. No c/o pain/discomfort. IV site is patent and intact. Bed in lowest position. Bed alarm is on. Call light within reach. Will continue to monitor.
[2018-10-03 20:00] VITALS: BP 159/83
[2018-10-04] VITALS: BP 147/76
[2018-10-04] MEDS: D5 1/2NS w/KCl 40meq 1000ml 1,000 ML IV SCH (02:18)
[2018-10-04 04:00] VITALS: BP 143/73
[2018-10-04] MEDS: NovoLOG Insulin Flexpen SUBQ SCH ×4 (06:07→21:45)
[2018-10-04 06:18] LABS: BASOPHILS % (AUTO) 1.5 % (0.0-2.0); EOSINOPHILS % (AUTO) 1.1 % (0.0-3.0); HEMATOCRIT 36.1 % (37.0-47.0); HEMOGLOBIN 11.5 G/DL (12.0-16.0); LYMPHOCYTES % (AUTO) 35.8 % (20.0-45.0); MEAN CORPUSCULAR VOLUME 70 FL (80-99); MONOCYTES % (AUTO) 8.2 % (1.0-10.0); NEUTROPHILS % (AUTO) 53.5 % (45.0-75.0); PLATELET COUNT 308 K/UL (150-450); RED BLOOD COUNT 5.18 M/UL (4.20-5.40); RED CELL DISTRIBUTION WIDTH 17.4 % (11.6-14.8); WHITE BLOOD COUNT 9.5 K/UL (4.8-10.8)
[2018-10-04 06:37] LABS: ANION GAP 9 mmol/L (5-15); BLOOD UREA NITROGEN 5 mg/dL (7-18); CALCIUM 8.3 MG/DL (8.5-10.1); CARBON DIOXIDE 23 MMOL/L (21-32); CHLORIDE 104 MMOL/L (98-107); CREATININE 0.7 MG/DL (0.55-1.30); POTASSIUM 3.4 MMOL/L (3.5-5.1); SODIUM 136 MMOL/L (136-145)
--- NOTE | 2018-10-04 07:05 | NUR ---
HAND-OFF: Report given to Nirav Odonnell RN.
[2018-10-04 08:00] VITALS: BP 133/83
--- NOTE | 2018-10-04 08:45 | NUR ---
NURSE NOTES: PT AXOX4, CALM, RESTING IN BED. PT DENIES NAUSEA OR VOMITING. PT IS TOLERATING SMALL PORTIONS OF SOLID FOOD. IN NO APPARENT DISTRESS AT THIS TIME. PT IS AMBULATING WITH STEADY GAIT. DENIES SOB OR DIZZINESS. WILL CONTINUE TO MONITOR.
--- NOTE | 2018-10-04 11:22 | GI Progress Note ---
Assessment/Plan Problems: (1) Cannabinoid hyperemesis syndrome ICD Codes: F12.988 - Cannabis use, unspecified with other cannabis-induced disorder SNOMED: 690768970, 930056428 (2) Intractable vomiting ICD Codes: R11.10 - Vomiting, unspecified SNOMED: 757945129 Qualifiers: Qualified Codes: G43.A1 - Cyclical vomiting, intractable (3) DM (diabetes mellitus) ICD Codes: E11.9 - Type 2 diabetes mellitus without complications SNOMED: 26038645 (4) Gastroparesis due to DM ICD Codes: E11.43 - Type 2 diabetes mellitus with diabetic autonomic (poly) neuropathy; K31.84 - Gastroparesis SNOMED: 360324945 Status: stable Status Narrative Discussed with Dr. Dwyer. Assessment/Plan DDX for vomiting is UTI, Cannabinoid, GERD, gastroparesis new dx of DM okay for DC per GI standpoint if tolerates lunch reglan prn abx ppi zofran prn IV PO hydration + electrolyte correction outpatient GI procedures The patient was seen and examined at bedside and all new and available data was reviewed in the patients chart. I agree with the above findings, impression and plan. (Patient seen earlier today. Signature stamp does not reflect patient encounter time.). - Guillermo Dwyer MD Subjective Subjective tolerated breakfast denies any abdominal pain Objective Last 24 Hour Vital Signs Date Time Temp Pulse Resp B/P (MAP) Pulse Ox O2 Delivery O2 Flow Rate FiO2 10/04/18 09:00 Room Air 10/04/18 08:51 74 133/83 10/04/18 08:00 98.6 74 18 133/83 (100) 99 10/04/18 04:00 98.0 75 16 143/73 (96) 99 10/04/18 00:00 98.0 67 16 147/76 (99) 100 10/03/18 21:00 Room Air 10/03/18 20:00 98.2 77 16 159/83 (108) 100 10/03/18 16:00 97.8 71 18 153/85 (107) 100 10/03/18 12:00 97.9 66 18 158/80 (106) 100 Intake and Output 10/03/18 10/04/18 19:00 07:00 Intake Total 580 ml 1100 ml Balance 580 ml 1100 ml Intake Oral 480 ml IV Total 100 ml 1100 ml # Voids 3 4 # Bowel Movements 1 Laboratory Tests Test 10/04/18 05:45 White Blood Count 9.5 K/UL (4.8-10.8) Red Blood Count 5.18 M/UL (4.20-5.40) Hemoglobin 11.5 G/DL (12.0-16.0) L Hematocrit 36.1 % (37.0-47.0) L Mean Corpuscular Volume 70 FL (80-99) L Mean Corpuscular Hemoglobin 22.2 PG (27.0-31.0) L Mean Corpuscular Hemoglobin Concent 31.9 G/DL (32.0-36.0) L Red Cell Distribution Width 17.4 % (11.6-14.8) H Platelet Count 308 K/UL (150-450) Mean Platelet Volume 7.1 FL (6.5-10.1) Neutrophils (%) (Auto) 53.5 % (45.0-75.0) Lymphocytes (%) (Auto) 35.8 % (20.0-45.0) Monocytes (%) (Auto) 8.2 % (1.0-10.0) Eosinophils (%) (Auto) 1.1 % (0.0-3.0) Basophils (%) (Auto) 1.5 % (0.0-2.0) Sodium Level 136 MMOL/L (136-145) Potassium Level 3.4 MMOL/L (3.5-5.1) L Chloride Level 104 MMOL/L (98-107) Carbon Dioxide Level 23 MMOL/L (21-32) Anion Gap 9 mmol/L (5-15) Blood Urea Nitrogen 5 mg/dL (7-18) L Creatinine 0.7 MG/DL (0.55-1.30) Estimat Glomerular Filtration Rate > 60 mL/min (>60) Glucose Level 188 MG/DL (74-106) H Hemoglobin A1c 9.1 % (4.3-6.0) H Calcium Level 8.3 MG/DL (8.5-10.1) L Magnesium Level 1.7 MG/DL (1.8-2.4) L Height (Feet): 5 Height (Inches): 4.00 Weight (Pounds): 163 General Appearance: WD/WN, no apparent distress, alert Cardiovascular: normal rate Respiratory/Chest: normal breath sounds, no respiratory distress Abdominal Exam: normal bowel sounds, non tender, soft Extremities: normal range of motion, non-tender Francheska Alejandro NP Oct 04, 2018 11:22
[2018-10-04 12:00] VITALS: BP 119/75
[2018-10-04] MEDS: metFORMIN 500mg tab ORAL SCH ×2 (14:30→17:17)
--- NOTE | 2018-10-04 15:13 | General Progress Note ---
Assessment/Plan Problem List: (1) DM (diabetes mellitus) ICD Codes: E11.9 - Type 2 diabetes mellitus without complications SNOMED: 34003284 (2) Cannabinoid hyperemesis syndrome ICD Codes: F12.988 - Cannabis use, unspecified with other cannabis-induced disorder SNOMED: 532807832, 653617595 (3) Intractable vomiting ICD Codes: R11.10 - Vomiting, unspecified SNOMED: 301067085 Qualifiers: Qualified Codes: G43.A1 - Cyclical vomiting, intractable (4) UTI (urinary tract infection) ICD Codes: N39.0 - Urinary tract infection, site not specified SNOMED: 79414634 (5) Hypokalemia ICD Codes: E87.6 - Hypokalemia SNOMED: 24564960 Status: stable Assessment/Plan: Po cipro SSI DC IVF start Metformin Diabetes education Subjective Allergies: Coded Allergies: No Known Allergies (Unverified , 07/15/18) Subjective feels better Objective Last 24 Hour Vital Signs Date Time Temp Pulse Resp B/P (MAP) Pulse Ox O2 Delivery O2 Flow Rate FiO2 10/04/18 12:00 98.1 82 18 119/75 (90) 100 10/04/18 09:00 Room Air 10/04/18 08:51 74 133/83 10/04/18 08:00 98.6 74 18 133/83 (100) 99 10/04/18 04:00 98.0 75 16 143/73 (96) 99 10/04/18 00:00 98.0 67 16 147/76 (99) 100 10/03/18 21:00 Room Air 10/03/18 20:00 98.2 77 16 159/83 (108) 100 10/03/18 16:00 97.8 71 18 153/85 (107) 100 Intake and Output 10/03/18 10/04/18 18:59 06:59 Intake Total 480 ml 1200 ml Balance 480 ml 1200 ml Intake Oral 480 ml IV Total 1200 ml # Voids 3 4 # Bowel Movements 1 Laboratory Tests 10/04/18 05:45: White Blood Count 9.5, Red Blood Count 5.18, Hemoglobin 11.5L, Hematocrit 36.1L , Mean Corpuscular Volume 70L, Mean Corpuscular Hemoglobin 22.2L, Mean Corpuscular Hemoglobin Concent 31.9L, Red Cell Distribution Width 17.4H, Platelet Count 308, Mean Platelet Volume 7.1, Neutrophils (%) (Auto) 53.5, Lymphocytes (%) (Auto) 35.8, Monocytes (%) (Auto) 8.2, Eosinophils (%) (Auto) 1.1, Basophils (%) (Auto) 1.5, Sodium Level 136, Potassium Level 3.4L, Chloride Level 104, Carbon Dioxide Level 23, Anion Gap 9, Blood Urea Nitrogen 5L, Creatinine 0.7, Estimat Glomerular Filtration Rate > 60, Glucose Level 188H, Hemoglobin A1c 9.1H, Calcium Level 8.3L, Magnesium Level 1.7L Height (Feet): 5 Height (Inches): 4.00 Weight (Pounds): 163 Cardiovascular: normal rate Respiratory/Chest: lungs clear Edema: no edema noted Generalized Kvng Pinto MD Oct 04, 2018 15:13
[2018-10-04 16:00] VITALS: BP 133/73
--- NOTE | 2018-10-04 19:59 | NUR ---
HAND-OFF: Report given to Jett CARVAJAL RN.
[2018-10-04 20:00] VITALS: BP 144/79
--- NOTE | 2018-10-04 20:08 | NUR ---
CASE MANAGEMENT: REVIEW SI: INTRACTABLE VOMITING . CANNABINOID HYPEREMESIS SYNDROME T 98.1 HR 82 RR 18 BP 143/73 SAT 99% ROOM AIR H/H 11.5/36.1 K 3.4 IS: D5 1/2 NS w/KCl 40MEQ IVF @100ML/HR PROTONIX PO QD REGLAN IV Q8HR PRN ZOFRAN IV Q4HR PRN REG PO DIET MED/SURG STATUS DCP: PATIENT IS FROM HOME
[2018-10-05] VITALS (7 sets, daily range): BP systolic 126–154; BP diastolic 73–89
[2018-10-05] MEDS: NovoLOG Insulin Flexpen SUBQ SCH ×4 (05:56→21:37)
[2018-10-05 06:39] LABS: BASOPHILS % (AUTO) 0.8 % (0.0-2.0); EOSINOPHILS % (AUTO) 1.6 % (0.0-3.0); HEMATOCRIT 37.2 % (37.0-47.0); HEMOGLOBIN 11.6 G/DL (12.0-16.0); LYMPHOCYTES % (AUTO) 35.1 % (20.0-45.0); MEAN CORPUSCULAR VOLUME 71 FL (80-99); MONOCYTES % (AUTO) 7.3 % (1.0-10.0); NEUTROPHILS % (AUTO) 55.2 % (45.0-75.0); PLATELET COUNT 304 K/UL (150-450); RED BLOOD COUNT 5.25 M/UL (4.20-5.40); RED CELL DISTRIBUTION WIDTH 17.9 % (11.6-14.8); WHITE BLOOD COUNT 9.2 K/UL (4.8-10.8)
[2018-10-05 07:14] LABS: ANION GAP 11 mmol/L (5-15); BLOOD UREA NITROGEN 8 mg/dL (7-18); CALCIUM 8.4 MG/DL (8.5-10.1); CARBON DIOXIDE 22 MMOL/L (21-32); CHLORIDE 106 MMOL/L (98-107); CREATININE 0.6 MG/DL (0.55-1.30); POTASSIUM 3.4 MMOL/L (3.5-5.1); SODIUM 139 MMOL/L (136-145)
--- NOTE | 2018-10-05 07:25 | NUR ---
HAND-OFF: Report given to GUSTAVO Louise.
--- NOTE | 2018-10-05 07:28 | NUR ---
NURSE NOTES: Received report from GUSTAVO Young. PT in bed, asleep, respiration unlabored and regular, no apparent distress noted, bed in lowest position, call light within reach.
[2018-10-05] MEDS: metFORMIN 500mg tab ORAL SCH ×2 (08:21→17:02)
--- NOTE | 2018-10-05 10:59 | GI Progress Note ---
Assessment/Plan Problems: (1) Cannabinoid hyperemesis syndrome ICD Codes: F12.988 - Cannabis use, unspecified with other cannabis-induced disorder SNOMED: 600638084, 159832432 (2) Intractable vomiting ICD Codes: R11.10 - Vomiting, unspecified SNOMED: 083399895 Qualifiers: Qualified Codes: G43.A1 - Cyclical vomiting, intractable (3) DM (diabetes mellitus) ICD Codes: E11.9 - Type 2 diabetes mellitus without complications SNOMED: 32774714 (4) Gastroparesis due to DM ICD Codes: E11.43 - Type 2 diabetes mellitus with diabetic autonomic (poly) neuropathy; K31.84 - Gastroparesis SNOMED: 359236744 Status: stable Status Narrative Discussed with Dr. Dwyer. Assessment/Plan DDX for vomiting is UTI, Cannabinoid, GERD, gastroparesis new dx of DM okay for DC per GI standpoint reglan prn abx ppi zofran prn IV PO hydration + electrolyte correction outpatient GI procedures The patient was seen and examined at bedside and all new and available data was reviewed in the patients chart. I agree with the above findings, impression and plan. (Patient seen earlier today. Signature stamp does not reflect patient encounter time.). - Guillermo Dwyer MD Subjective Gastrointestinal/Abdominal: Reports: no symptoms Subjective tolerated breakfast denies any abdominal pain Objective Last 24 Hour Vital Signs Date Time Temp Pulse Resp B/P (MAP) Pulse Ox O2 Delivery O2 Flow Rate FiO2 10/05/18 09:00 Room Air 10/05/18 08:21 76 128/89 10/05/18 07:47 98.1 76 14 128/89 (102) 100 10/05/18 04:00 98.5 76 18 126/89 (101) 99 10/05/18 00:00 98.9 76 16 146/73 (97) 100 10/04/18 21:00 Room Air 10/04/18 20:00 99.0 71 16 144/79 (100) 98 10/04/18 16:00 98.9 71 18 133/73 (93) 98 10/04/18 12:00 98.1 82 18 119/75 (90) 100 Intake and Output 10/04/18 10/05/18 19:00 07:00 Intake Total 980 ml Balance 980 ml Intake Oral 480 ml IV Total 500 ml # Voids 3 2 Laboratory Tests Test 10/05/18 05:20 White Blood Count 9.2 K/UL (4.8-10.8) Red Blood Count 5.25 M/UL (4.20-5.40) Hemoglobin 11.6 G/DL (12.0-16.0) L Hematocrit 37.2 % (37.0-47.0) Mean Corpuscular Volume 71 FL (80-99) L Mean Corpuscular Hemoglobin 22.1 PG (27.0-31.0) L Mean Corpuscular Hemoglobin Concent 31.3 G/DL (32.0-36.0) L Red Cell Distribution Width 17.9 % (11.6-14.8) H Platelet Count 304 K/UL (150-450) Mean Platelet Volume 6.8 FL (6.5-10.1) Neutrophils (%) (Auto) 55.2 % (45.0-75.0) Lymphocytes (%) (Auto) 35.1 % (20.0-45.0) Monocytes (%) (Auto) 7.3 % (1.0-10.0) Eosinophils (%) (Auto) 1.6 % (0.0-3.0) Basophils (%) (Auto) 0.8 % (0.0-2.0) Sodium Level 139 MMOL/L (136-145) Potassium Level 3.4 MMOL/L (3.5-5.1) L Chloride Level 106 MMOL/L (98-107) Carbon Dioxide Level 22 MMOL/L (21-32) Anion Gap 11 mmol/L (5-15) Blood Urea Nitrogen 8 mg/dL (7-18) Creatinine 0.6 MG/DL (0.55-1.30) Estimat Glomerular Filtration Rate > 60 mL/min (>60) Glucose Level 112 MG/DL (74-106) H Calcium Level 8.4 MG/DL (8.5-10.1) L Height (Feet): 5 Height (Inches): 4.00 Weight (Pounds): 158 General Appearance: WD/WN, no apparent distress, alert Cardiovascular: normal rate Respiratory/Chest: normal breath sounds, no respiratory distress Abdominal Exam: normal bowel sounds, non tender, soft Extremities: normal range of motion, non-tender AlejandroFrancheska abbott NP Oct 05, 2018 10:59
--- NOTE | 2018-10-05 12:56 | NUR ---
RD ASSESSMENT & RECOMMENDATIONS SEE CARE ACTIVITY FOR COMPLETE ASSESSMENT DAILY ESTIMATED NEEDS: Needs based on DM/ 71kg 25-30 kcals/kg 5453-2083 total kcals 1-1.3 g protein/kg 71-92 g total protein 25-30 mL/kg 4289-[address] consult for new DM dx. Pt reports + family h/o diabetes. Not too familiar to carb controlled diet. DM diet ed provided in detail. Reviewed foods with carbohydrates, how to count carb servings and recommended carb servings, meal/snack options and ideas, preferred fluids, portion control, reading nutrition facts label, signs of hyper anf hypoglycemia, exercise, and weight control, etc. Pt asked many questions and verbalized understanding. NUTRITION DIAGNOSIS: * Altered nutrition related lab values R/T diabetes as evidenced by A1C of 9.1. * Altered GI function R/T gastroparesis as evidenced by pt admitted w/ c/o N/V, now improved. CURRENT DIET:CCHO MED PO DIET RECOMMENDATIONS: CCHO MED, LOW NA ADDITIONAL RECOMMENDATIONS: * Standing wt for accurate CBW * DM diet ed provided on 10/05 * Monitor BGs closely- improved * Monitor for N/V: improved per pt * Monitor lytes, replete as needed (K 3.4, mag 1.7)
--- NOTE | 2018-10-05 13:18 | General Progress Note ---
Assessment/Plan Problem List: (1) DM (diabetes mellitus) ICD Codes: E11.9 - Type 2 diabetes mellitus without complications SNOMED: 17477317 (2) Cannabinoid hyperemesis syndrome ICD Codes: F12.988 - Cannabis use, unspecified with other cannabis-induced disorder SNOMED: 059955198, 538707013 (3) Intractable vomiting ICD Codes: R11.10 - Vomiting, unspecified SNOMED: 266396286 Qualifiers: Qualified Codes: G43.A1 - Cyclical vomiting, intractable (4) UTI (urinary tract infection) ICD Codes: N39.0 - Urinary tract infection, site not specified SNOMED: 00620570 (5) Hypokalemia ICD Codes: E87.6 - Hypokalemia SNOMED: 75299791 Status: stable Assessment/Plan: Po cipro SSI await endocrine consult Metformin was increased by Dr Harmon Discussed with RN Subjective Allergies: Coded Allergies: No Known Allergies (Unverified , 07/15/18) Subjective feels better Objective Last 24 Hour Vital Signs Date Time Temp Pulse Resp B/P (MAP) Pulse Ox O2 Delivery O2 Flow Rate FiO2 10/05/18 12:00 98.0 95 16 146/85 (105) 99 10/05/18 09:00 Room Air 10/05/18 08:21 76 128/89 10/05/18 07:47 98.1 76 14 128/89 (102) 100 10/05/18 04:00 98.5 76 18 126/89 (101) 99 10/05/18 00:00 98.9 76 16 146/73 (97) 100 10/04/18 21:00 Room Air 10/04/18 20:00 99.0 71 16 144/79 (100) 98 10/04/18 16:00 98.9 71 18 133/73 (93) 98 Intake and Output 10/04/18 10/05/18 19:00 07:00 Intake Total 980 ml Balance 980 ml Intake Oral 480 ml IV Total 500 ml # Voids 3 2 Laboratory Tests 10/05/18 05:20: White Blood Count 9.2, Red Blood Count 5.25, Hemoglobin 11.6L, Hematocrit 37.2, Mean Corpuscular Volume 71L, Mean Corpuscular Hemoglobin 22.1L, Mean Corpuscular Hemoglobin Concent 31.3L, Red Cell Distribution Width 17.9H, Platelet Count 304, Mean Platelet Volume 6.8, Neutrophils (%) (Auto) 55.2, Lymphocytes (%) (Auto) 35.1, Monocytes (%) (Auto) 7.3, Eosinophils (%) (Auto) 1.6, Basophils (%) (Auto) 0.8, Sodium Level 139, Potassium Level 3.4L, Chloride Level 106, Carbon Dioxide Level 22, Anion Gap 11, Blood Urea Nitrogen 8, Creatinine 0.6, Estimat Glomerular Filtration Rate > 60, Glucose Level 112H, Calcium Level 8.4L Height (Feet): 5 Height (Inches): 4.00 Weight (Pounds): 158 Cardiovascular: normal rate Respiratory/Chest: lungs clear Kvng Pinto MD Oct 05, 2018 13:18
--- NOTE | 2018-10-05 19:28 | NUR ---
HAND-OFF: Report given to GUSTAVO Alaniz.
--- NOTE | 2018-10-05 19:46 | NUR ---
NURSE NOTES: patient in bed, awake, alert and verbally responsive. Able to make needs known. Kept clean and comfortable. Provided safe environment. Call light is at bedside. Skin is warm and dry to touch. Abdomen is soft and non distended. No complaint of pain or discomfort. Respiration is even and unlabored. Will continue plan of care.
--- NOTE | 2018-10-05 20:12 | NUR ---
CASE MANAGEMENT: REVIEW SI: INTRACTABLE VOMITING . CANNABINOID HYPEREMESIS SYNDROME T 98.8 HR 76 RR 16 BP 146/82 SAT 99% ROOM AIR K 3.4 NEAL 8.4 GLUCOSE 188 IS: PROTONIX PO QD REGLAN IV Q8HR PRN ZOFRAN IV Q4HR PRN REG PO DIET AWAIT ENDOCRINE CONSULT MED/SURG STATUS DCP: PATIENT IS FROM HOME
[2018-10-06 04:00] VITALS: BP 126/66
[2018-10-06] MEDS: NovoLOG Insulin Flexpen SUBQ SCH ×2 (06:30→11:33)
[2018-10-06 07:01] LABS: ANION GAP 6 mmol/L (5-15); BLOOD UREA NITROGEN 14 mg/dL (7-18); CALCIUM 8.4 MG/DL (8.5-10.1); CARBON DIOXIDE 26 MMOL/L (21-32); CHLORIDE 104 MMOL/L (98-107); CREATININE 0.7 MG/DL (0.55-1.30); POTASSIUM 3.3 MMOL/L (3.5-5.1); SODIUM 136 MMOL/L (136-145)
[2018-10-06 07:16] LABS: BASOPHILS % (AUTO) 0.9 % (0.0-2.0); EOSINOPHILS % (AUTO) 2.2 % (0.0-3.0); HEMATOCRIT 36.7 % (37.0-47.0); HEMOGLOBIN 11.5 G/DL (12.0-16.0); LYMPHOCYTES % (AUTO) 37.5 % (20.0-45.0); MEAN CORPUSCULAR VOLUME 71 FL (80-99); MONOCYTES % (AUTO) 7.9 % (1.0-10.0); NEUTROPHILS % (AUTO) 51.5 % (45.0-75.0); PLATELET COUNT 313 K/UL (150-450); RED BLOOD COUNT 5.19 M/UL (4.20-5.40); RED CELL DISTRIBUTION WIDTH 17.7 % (11.6-14.8); WHITE BLOOD COUNT 8.5 K/UL (4.8-10.8)
--- NOTE | 2018-10-06 07:30 | NUR ---
nurse notes received patient in bed, patient awake, alert, oriented x4. no sign of distress, HL patent, plan of care was discussed verbalized understanding 4, P's in progress call light w/n reach will continue, will continue to monitor patient continue yanna finn
--- NOTE | 2018-10-06 07:31 | NUR ---
HAND-OFF: Report given to GUSTAVO Youssef.
[2018-10-06 08:00] VITALS: BP 162/81
[2018-10-06] MEDS: metFORMIN 500mg tab ORAL SCH (08:10)
[2018-10-06 08:38] VITALS: BP 150/72
--- NOTE | 2018-10-06 10:28 | GI Progress Note ---
Assessment/Plan Problems: (1) Cannabinoid hyperemesis syndrome ICD Codes: F12.988 - Cannabis use, unspecified with other cannabis-induced disorder SNOMED: 585371279, 874515898 (2) Intractable vomiting ICD Codes: R11.10 - Vomiting, unspecified SNOMED: 528801533 Qualifiers: Qualified Codes: G43.A1 - Cyclical vomiting, intractable (3) DM (diabetes mellitus) ICD Codes: E11.9 - Type 2 diabetes mellitus without complications SNOMED: 19239965 (4) Gastroparesis due to DM ICD Codes: E11.43 - Type 2 diabetes mellitus with diabetic autonomic (poly) neuropathy; K31.84 - Gastroparesis SNOMED: 789826056 Status: stable Status Narrative Discussed with Dr. Dwyer. Assessment/Plan DDX for vomiting is UTI, Cannabinoid, GERD, gastroparesis new dx of DM okay for DC per GI standpoint adv diet reglan prn abx ppi zofran prn IV PO hydration + electrolyte correction outpatient GI procedures The patient was seen and examined at bedside and all new and available data was reviewed in the patients chart. I agree with the above findings, impression and plan. (Patient seen earlier today. Signature stamp does not reflect patient encounter time.). - Guillermo Dwyer MD Subjective Subjective tolerated breakfast denies any abdominal pain Objective Last 24 Hour Vital Signs Date Time Temp Pulse Resp B/P (MAP) Pulse Ox O2 Delivery O2 Flow Rate FiO2 10/06/18 08:38 150/72 (98) 10/06/18 08:10 76 126/66 10/06/18 08:00 Room Air 10/06/18 08:00 98.8 79 18 162/81 (108) 98 10/06/18 04:00 98.6 76 18 126/66 (86) 98 10/05/18 23:40 98.2 91 18 154/81 (105) 100 10/05/18 20:31 Room Air 10/05/18 20:00 98.4 98 18 153/83 (106) 100 10/05/18 16:00 98.8 76 16 146/82 (103) 99 10/05/18 12:00 98.0 95 16 146/85 (105) 99 Intake and Output 10/05/18 10/06/18 18:59 06:59 Intake Total 1600 ml Balance 1600 ml Intake Oral 1600 ml # Voids 4 3 # Bowel Movements 2 Laboratory Tests Test 10/06/18 06:25 White Blood Count 8.5 K/UL (4.8-10.8) Red Blood Count 5.19 M/UL (4.20-5.40) Hemoglobin 11.5 G/DL (12.0-16.0) L Hematocrit 36.7 % (37.0-47.0) L Mean Corpuscular Volume 71 FL (80-99) L Mean Corpuscular Hemoglobin 22.2 PG (27.0-31.0) L Mean Corpuscular Hemoglobin Concent 31.4 G/DL (32.0-36.0) L Red Cell Distribution Width 17.7 % (11.6-14.8) H Platelet Count 313 K/UL (150-450) Mean Platelet Volume 7.1 FL (6.5-10.1) Neutrophils (%) (Auto) 51.5 % (45.0-75.0) Lymphocytes (%) (Auto) 37.5 % (20.0-45.0) Monocytes (%) (Auto) 7.9 % (1.0-10.0) Eosinophils (%) (Auto) 2.2 % (0.0-3.0) Basophils (%) (Auto) 0.9 % (0.0-2.0) Sodium Level 136 MMOL/L (136-145) Potassium Level 3.3 MMOL/L (3.5-5.1) L Chloride Level 104 MMOL/L (98-107) Carbon Dioxide Level 26 MMOL/L (21-32) Anion Gap 6 mmol/L (5-15) Blood Urea Nitrogen 14 mg/dL (7-18) Creatinine 0.7 MG/DL (0.55-1.30) Estimat Glomerular Filtration Rate > 60 mL/min (>60) Glucose Level 101 MG/DL (74-106) Calcium Level 8.4 MG/DL (8.5-10.1) L Height (Feet): 5 Height (Inches): 4.00 Weight (Pounds): 158 General Appearance: WD/WN, no apparent distress, alert Cardiovascular: normal rate Respiratory/Chest: normal breath sounds, no respiratory distress Abdominal Exam: normal bowel sounds, non tender, soft Extremities: normal range of motion, non-tender Alejandro,Zakiya-Louie DIE CUTTER OPERATOR Oct 06, 2018 10:28
[2018-10-06 12:10] VITALS: BP 135/84
[2018-10-06] MEDS ORDERED: GLUCOPHAGE500 MG ORAL (12:26)
[2018-10-06] MEDS ORDERED: PANTOPRAZOLE SO40 MG ORAL (12:26)
[2018-10-06] MEDS ORDERED: NORVASC5 MG ORAL (12:26)
--- NOTE | 2018-10-06 12:30 | General Progress Note ---
Assessment/Plan Problem List: (1) DM (diabetes mellitus) ICD Codes: E11.9 - Type 2 diabetes mellitus without complications SNOMED: 82604215 (2) Cannabinoid hyperemesis syndrome ICD Codes: F12.988 - Cannabis use, unspecified with other cannabis-induced disorder SNOMED: 490950663, 371147086 (3) Intractable vomiting ICD Codes: R11.10 - Vomiting, unspecified SNOMED: 888018983 Qualifiers: Qualified Codes: G43.A1 - Cyclical vomiting, intractable (4) UTI (urinary tract infection) ICD Codes: N39.0 - Urinary tract infection, site not specified SNOMED: 53511922 (5) Hypokalemia ICD Codes: E87.6 - Hypokalemia SNOMED: 27995961 Status: stable Assessment/Plan: dc TODAY f/u WITH ME OR dR Moreno OUTPT Subjective Allergies: Coded Allergies: No Known Allergies (Unverified , 07/15/18) Subjective feels better Objective Last 24 Hour Vital Signs Date Time Temp Pulse Resp B/P (MAP) Pulse Ox O2 Delivery O2 Flow Rate FiO2 10/06/18 12:10 98.6 74 18 135/84 (101) 100 10/06/18 08:38 150/72 (98) 10/06/18 08:10 76 126/66 10/06/18 08:00 Room Air 10/06/18 08:00 98.8 79 18 162/81 (108) 98 10/06/18 04:00 98.6 76 18 126/66 (86) 98 10/05/18 23:40 98.2 91 18 154/81 (105) 100 10/05/18 20:31 Room Air 10/05/18 20:00 98.4 98 18 153/83 (106) 100 10/05/18 16:00 98.8 76 16 146/82 (103) 99 Intake and Output 10/05/18 10/06/18 19:00 07:00 Intake Total 1600 ml Balance 1600 ml Intake Oral 1600 ml # Voids 4 3 # Bowel Movements 2 Laboratory Tests 10/06/18 06:25: White Blood Count 8.5, Red Blood Count 5.19, Hemoglobin 11.5L, Hematocrit 36.7L , Mean Corpuscular Volume 71L, Mean Corpuscular Hemoglobin 22.2L, Mean Corpuscular Hemoglobin Concent 31.4L, Red Cell Distribution Width 17.7H, Platelet Count 313, Mean Platelet Volume 7.1, Neutrophils (%) (Auto) 51.5, Lymphocytes (%) (Auto) 37.5, Monocytes (%) (Auto) 7.9, Eosinophils (%) (Auto) 2.2, Basophils (%) (Auto) 0.9, Sodium Level 136, Potassium Level 3.3L, Chloride Level 104, Carbon Dioxide Level 26, Anion Gap 6, Blood Urea Nitrogen 14, Creatinine 0.7, Estimat Glomerular Filtration Rate > 60, Glucose Level 101, Calcium Level 8.4L Height (Feet): 5 Height (Inches): 4.00 Weight (Pounds): 158 Kvng Pinto MD Oct 06, 2018 12:30
--- NOTE | 2018-10-06 14:41 | NUR ---
nurse notes discharge to home obtained, patient agreed with the plan of care discharge instruction packet handed to patient,including prescription meds, all questios answered verbalized understanding [id number] discharged in stable condition with all belongings taken accompanied by family member, refused to be wheeled by [employer] , discharged via private car yanna finn
--- NOTE | 2018-10-07 04:15 | Consultation ---
DATE OF CONSULTATION: 10/06/2018 NOTE: POOR AUDIO CONSULTING PHYSICIAN: Francisco Harmon M.D. REFERRING PHYSICIAN: HISTORY OF PRESENT ILLNESS: The patient is a 48-year-old female on 10/02/2018 . She . She is feeling much better. She also has a history of hypertension, on amlodipine 5 mg daily. FAMILY HISTORY: Unremarkable. PERSONAL HISTORY: Unremarkable. REVIEW OF SYSTEMS: Unremarkable. PHYSICAL EXAMINATION: GENERAL: The patient in no acute distress. VITAL SIGNS: Blood pressure 155/85, pulse 85, respiratory rate 16. . CVS: Regular. . PLAN: medical insurance. nausea, she was also started on Protonix 40 mg p.o. daily. Francisco Harmon M.D. DR: Kevin JOB#: [id number] CC:
--- NOTE | 2018-10-07 16:16 | Discharge Summary ---
Discharge Summary Discharge Summary _ DATE OF ADMISSION: 10/02/2018 DATE OF DISCHARGE: 10/06/2018 DISCHARGED BY:Dr. Pinto REASON FOR ADMISSION: 48 years old female with past medical history of diabetes mellitus, was on vacation in [place] , when she developed abdominal pain and vomiting. Patient came back to [place] and was seen in the emergency room on . During her work-up on 09/28 for similar presentation , she had significant leukocytosis . At that time chest x-ray and CT scan of the abdomen and pelvis were done, and they were negative. Urinalysis was suggestive for UTI. She was diagnosed with UTI at this time, subsequently treated and discharged with antibiotic and antinausea medication. However her symptoms did not improve, and she came to emergency room with epigastric pain and continuous vomiting. Patient never had similar episodes in the past. She denied any history of heavy alcohol abuse , although admitted to taking two Tequila shots on the day symptoms appeared. Upon evaluation vital signs were stable. Laboratory work-up revealed no leukocytosis, stable hemoglobin and hematocrit. Potassium 2.8 , sodium 133. BUN 20, creatinine 0.9. Glucose 233. Stable LFT and lipase. Urine toxicology screen positive for marijuana. Urinalysis revealed pyuria +1 leukocyte esterase, +1 protein, +3 ketones, and few bacteria. Patient received additional Rocephin , antiemetic , and admitted for further management. CONSULTANTS: GI specialist Dr. Dwyer Svp Monetization Dr. Harmon [facility]: Patient admitted to medical surgical floor. Patient was kept n.p.o. and started on the IV fluids with repletion of potassium and empiric antibiotics. Pain management was addressed. Patient started on GI prophylaxis with Pepcid. Antiemetic were on board as needed. Per GI specialist, differential diagnosis for vomiting included urinary tract infection , cannabinoid use, GERD and gastroparesis. Patient was started on Reglan .PPI continued. Patient started on clear liquid diet as tolerated. Diet was advanced as tolerated. Oral hydration were encouraged. GI specialist recommended outpatient GI procedure. Renal parameters and electrolytes were closely monitored, electrolytes further corrected as needed, nephrotoxic were avoided. Hemoglobin A1c 9.1, clearly not at goal. Blood sugar was managed with metformin and sliding scale of insulin as needed. Patient will need further optimization of anti-glycemic regimen. Patient was counseled on compliance with anti-glycemic medication regimen and diabetic diet. Urine culture revealed mixed gram-positive organisms. Patient completed treatment for UTI , initially diagnosed on prior visit to ED. Patient remained afebrile , no leukocytosis. Patient was able to tolerate diet. Vomiting resolved. Patient clinically stabilized and was ready for discharge home. FINAL DIAGNOSES: Cannabinoid hyperemesis syndrome Gastroparesis due to diabetes mellitus Diabetes mellitus Intractable vomiting -resolved Urinary tract infection-s/p treatment Hypokalemia-resolved DISCHARGE MEDICATIONS: See Medication Reconciliation list. DISCHARGE INSTRUCTIONS: Patient was discharged home . Follow up with Dr Pinto or Dr Antonio as outpatient I have been assigned to dictate discharge summary for this account. I was not involved in the patient's management. Marivel Hanson NP Oct 07, 2018 16:16
== END 2018-10-06 14:42 | disposition home or self-care (01) | DRG 254 ==
LOC: EMR 23:55 → 4E 10-02 01:35 → EDBEDREQ 10-02 01:41
DX: K31.89 Other diseases of stomach and duodenum (principal); R11.2 Nausea with vomiting, unspecified; F12.188 Cannabis abuse with other cannabis-induced disorder; E11.43 Type 2 diabetes mellitus with diabetic autonomic (poly)neuropathy; K31.84 Gastroparesis; A09 Infectious gastroenteritis and colitis, unspecified; K27.9 Peptic ulcer, site unspecified, unspecified as acute or chronic, without hemorrhage or perforation; N39.0 Urinary tract infection, site not specified; K21.9 Gastro-esophageal reflux disease without esophagitis; E87.6 Hypokalemia
CPT/HCPCS: 36415; 80048; 80053; 80307; 81001; 82150; 82962; 83036; 83690; 83735; 85025; 87086; 96361; 96374; 96375; 96376; 99285; J1815; J2405; J8499

== ENCOUNTER 2018-11-02 08:14 | Inpatient (IN) | payer MEDICAID ==
[~2018-11-02] VITALS: Ht 162.6 cm; Wt 70.3 kg
[~2018-11-02 08:14] MED LIST changes: +GLUCOPHAGE500 MG ORAL; +NORVASC5 MG ORAL; +PANTOPRAZOLE SO40 MG ORAL
--- NOTE | 2018-11-02 08:37 | Emergency Room Report ---
History of Present Illness General Chief Complaint: Abdominal Pain Source: Medical Record Present Illness HPI 48-year-old female history of diabetes history of cannabis use presents with nausea and vomiting x1 day no aggravating or alleviating factors, patient states she is vomited multiple times not able to keep anything down, no fevers no chills she does endorse achy abdominal pain mild severity constant patient denies any dysuria, she does endorse using cannabis 2 days prior to arrival. Patient denies any chest pain shortness of breath. Allergies: Coded Allergies: No Known Allergies (Unverified , 07/15/18) Patient History Past Medical History: see triage record Social History: Reports: drug use - Cannabis Reviewed Nursing Documentation: PMH: Agreed; PSxH: Agreed Nursing Documentation-PMH Past Medical History: No History, Except For Hx Cardiac Problems: No Hx Hypertension: No Hx Asthma: No Hx COPD: No Hx Diabetes: Yes Hx Cancer: No Hx Gastrointestinal Problems: No Hx Dialysis: No History Of Psychiatric Problem: No Hx Neurological Problems: No Hx Cerebrovascular Accident: No Hx Seizures: No Review of Systems All Other Systems: negative except mentioned in HPI Physical Exam Vital Signs Date Time Temp Pulse Resp B/P (MAP) Pulse Ox O2 Delivery O2 Flow Rate FiO2 11/02/18 08:35 73 12 Room Air Sp02 EP Interpretation: reviewed, normal General Appearance: well appearing, no apparent distress, alert Head: normocephalic, atraumatic Eyes: bilateral eye PERRL, bilateral eye EOMI ENT: uvula midline, dry mucus membranes Neck: supple, thyroid normal, supple/symm/no masses Respiratory: lungs clear, no respiratory distress, no retraction, no accessory muscle use Cardiovascular #1: normal peripheral pulses, regular rate, rhythm, no edema, no gallop, no murmur Gastrointestinal: non tender, soft, no guarding, no rebound Musculoskeletal: normal inspection Neurologic: alert, oriented x3 Psychiatric: mood/affect normal Skin: no rash, warm/dry Medical Decision Making Diagnostic Impression: Primary Impression: Cannabinoid hyperemesis syndrome Additional Impressions: DM (diabetes mellitus) Qualified Codes: E11.9 - Type 2 diabetes mellitus without complications Dehydration Hypomagnesemia Hypokalemia ER Course 48-year-old female presents with acute nausea vomiting, dehydration, differential includes enteritis, diverticulitis, cannabinoid hyperemesis syndrome Labs show evidence of dehydration, hypo-magnesium as well as hypokalemia will resuscitate patient will provide patient with antibiotics for elevated white count as well as obtain blood cultures and lactic acid Reevaluation 11:04 AM, patient is feeling better Patient admitted to Dr. Dalton Laboratory Tests Test 11/02/18 08:35 11/02/18 09:15 11/02/18 09:45 11/02/18 10:30 White Blood Count 20.3 K/UL (4.8-10.8) H Red Blood Count 5.64 M/UL (4.20-5.40) H Hemoglobin 12.7 G/DL (12.0-16.0) Hematocrit 40.3 % (37.0-47.0) Mean Corpuscular Volume 71 FL (80-99) L Mean Corpuscular Hemoglobin 22.4 PG (27.0-31.0) L Mean Corpuscular Hemoglobin Concent 31.4 G/DL (32.0-36.0) L Red Cell Distribution Width 16.8 % (11.6-14.8) H Platelet Count 410 K/UL (150-450) Mean Platelet Volume 6.4 FL (6.5-10.1) L Neutrophils (%) (Auto) % (45.0-75.0) Lymphocytes (%) (Auto) % (20.0-45.0) Monocytes (%) (Auto) % (1.0-10.0) Eosinophils (%) (Auto) % (0.0-3.0) Basophils (%) (Auto) % (0.0-2.0) Differential Total Cells Counted 100 Neutrophils % (Manual) 80 % (45-75) H Lymphocytes % (Manual) 12 % (20-45) L Monocytes % (Manual) 8 % (1-10) Eosinophils % (Manual) 0 % (0-3) Basophils % (Manual) 0 % (0-2) Band Neutrophils 0 % (0-8) Platelet Estimate Adequate Platelet Morphology Normal Red Blood Cell Morphology Anisocytosis 1+ Microcytosis 2+ Urine Color Red Urine Appearance Cloudy Urine pH 6 (4.5-8.0) Urine Specific [place] 1.025 (1.005-1.035) Urine Protein 3+ (NEGATIVE) H Urine Glucose (UA) 1+ (NEGATIVE) H Urine Ketones 4+ (NEGATIVE) H Urine Blood 5+ (NEGATIVE) H Urine Nitrite Negative (NEGATIVE) Urine Bilirubin Negative (NEGATIVE) Urine Urobilinogen Normal MG/DL (0.0-1.0) Urine Leukocyte Esterase 3+ (NEGATIVE) H Urine RBC Tntc /HPF (0 - 2) H Urine WBC 30-40 /HPF (0 - 2) H Urine Squamous Epithelial Cells Many /LPF (NONE/OCC) H Urine Bacteria Few /HPF (NONE) Sodium Level 142 MMOL/L (136-145) Potassium Level 3.2 MMOL/L (3.5-5.1) L Chloride Level 100 MMOL/L (98-107) Carbon Dioxide Level 23 MMOL/L (21-32) Anion Gap 19 mmol/L (5-15) H Blood Urea Nitrogen 24 mg/dL (7-18) H Creatinine 0.7 MG/DL (0.55-1.30) Estimate Glomerular Filtration Rate > 60 mL/min (>60) Glucose Level 154 MG/DL (74-106) H Calcium Level 9.4 MG/DL (8.5-10.1) Total Bilirubin 0.6 MG/DL (0.2-1.0) Aspartate Amino Transferase (AST) 30 U/L (15-37) Alanine Aminotransferase (ALT) 19 U/L (12-78) Alkaline Phosphatase 56 U/L (46-116) Troponin I 0.000 ng/mL (0.000-0.056) Total Protein 8.4 G/DL (6.4-8.2) H Albumin 4.0 G/DL (3.4-5.0) Globulin 4.4 g/dL Albumin/Globulin Ratio 0.9 (1.0-2.7) L Lipase 84 U/L (73-393) Urine Opiates Screen Negative (NEGATIVE) Urine Barbiturates Screen Negative (NEGATIVE) Phencyclidine (PCP) Screen Negative (NEGATIVE) Urine Amphetamines Screen Negative (NEGATIVE) Urine Benzodiazepines Screen Negative (NEGATIVE) Urine Cocaine Screen Negative (NEGATIVE) Urine Marijuana (THC) Screen Positive (NEGATIVE) H Magnesium Level 1.0 MG/DL (1.8-2.4) L Lactic Acid Level 1.40 mmol/L (0.4-2.0) Venous Blood pH 7.358 Venous Blood Partial Pressure CO2 42.9 Venous Blood Partial Pressure O2 < 45.3 Venous Blood HCO3 23.6 Venous Blood Total Carbon Dioxide Pending Venous Bld O2 Saturation (Measured) Pending Venous Blood Oxygen Saturation Venous Blood Base Excess -1.9 Methemoglobin Pending Sodium (Blood Gas) Pending Test 11/02/18 10:45 Acetone Level Positive-small (NEGATIVE) EKG Diagnostic Results EKG Time: 08:37 EP Interpretation: Sinus bradycardia, rate 56, QTc 484, no acute ST elevations , normal axis Rhythm Strip Diag. Results Rhythm Strip Time: 08:42 EP Interpretation: yes Rate: 55 Rhythm: no PVC's, no ectopy, other - sinus bradycardia Chest X-Ray Diagnostic Results Chest X-Ray Diagnostic Results : Chest X-Ray Ordered: Yes # of Views/Limited/Complete: 1 View Indication: Other - Nausea vomiting EP Interpretation: Yes Interpretation: no consolidation, no effusion, no pneumothorax, no acute cardiopulmonary disease Impression: No acute disease Electronically Signed by: Rogelio Virk MD CT/MRI/US Diagnostic Results CT/MRI/US Diagnostic Results : Impression Procedure: CT Abdomen Pelvis w/Contrast Clinical Indication: Abdominal pain, nausea, vomiting Technique: No oral contrast utilized, per emergency room physician request IV administration nonionic contrast. Venous phase spiral acquisition obtained through the abdomen and pelvis. Multiplanar reconstructions were generated. Total dose length product 689.59 mGycm. CTDIvol(s) 13.14 mGy. Dose reduction achieved using automated exposure control Comparison: 09/28/2018 Findings: Lack of enteric contrast limits assessment of the GI tract. There are a few colonic diverticula. No evidence of diverticulitis. Normal appendix. There are equivocally scattered areas of colonic wall thickening and slight infiltration of the pericolonic fat, particularly in the region of the sigmoid. No small bowel distention. No free or loculated intraperitoneal gas or fluid is evident. The distal esophagus demonstrates mild wall thickening, as previously. The stomach, duodenum are unremarkable. The liver demonstrates mild hypoattenuation. The gallbladder, bile ducts, pancreas, spleen are unremarkable. Again demonstrated is a 21 mm right adrenal nodule. Left adrenal is unremarkable. The both kidneys demonstrate cysts and subcentimeter low-attenuation lesions which are too small to characterize. No retroperitoneal or mesenteric mass or adenopathy. Again demonstrated is a uterine fibroid. The ovaries are unremarkable. The bones are unremarkable except for degenerative changes of the lumbosacral junction. The included lung bases are clear.. Impression: Limited assessment of the GI tract, due to lack of enteric contrast administration Equivocal mild scattered areas of colon wall thickening and slight infiltration of the pericolonic fat, doubtful significance but if real could indicate mild colitis changes. Correlate with clinical findings Mild distal esophageal wall thickening, also previously described, could indicate esophagitis No acute process otherwise Mild hepatic hypoattenuation, consistent with fatty change Stable 21 mm right adrenal nodule. Recommend further evaluation as previously recommended if not already undertaken Colonic diverticulosis. No evidence of diverticulitis Uterine fibroid, also previously reported Bilateral renal cysts and subcentimeter low-attenuation lesion measuring 2 small to characterize Degenerative spondylosis The CT scanner at [facility] is accredited by the [employer] and the scans are performed using protocols designed to limit radiation exposure to as low as reasonably achievable to attain images of sufficient resolution adequate for diagnostic evaluation. Dictated By: Josr Driver MD Electronically Signed By: Josr Driver MD Signed Date/Time 11/02/18 1051 CC: Rogelio Virk MD CT brain: No acute processes Last Vital Signs Date Time Temp Pulse Resp B/P (MAP) Pulse Ox O2 Delivery O2 Flow Rate FiO2 11/02/18 08:35 73 12 Room Air Disposition: ADMITTED INPATIENT Condition: Stable Rogelio Virk MD Nov 02, 2018 08:37
--- NOTE | 2018-11-02 08:40 | NUR ---
ED Nurse Note: Patient walked into ED from home c/o left lower abdominal pain 5/ and intractable vomiting since yesterday morning. Patient is vomiting yellow, clear liquid at this time. patient is alert awake x4 ambulatory weak gait, breathing unlabored and even.
[2018-11-02] MEDS ORDERED: Isovue-300 100ml vial INJ PRN (08:45)
[2018-11-02] MEDS ORDERED: DiphenhydrAMINE 50mg/ml Inj IVP ONE (08:45)
[2018-11-02] MEDS ORDERED: Haloperidol 5mg/ml Inj IM ONE (08:45)
[2018-11-02] MEDS ORDERED: D5NS 1,000 ML IV ONE (08:45)
--- NOTE | 2018-11-02 08:55 | NUR ---
ED Nurse Note: warm blankets provided for the patient. educated patient to be NPO at this time, provided lemon swab for dry mouth.
[2018-11-02 09:01] LABS: HEMATOCRIT 40.3 % (37.0-47.0); HEMOGLOBIN 12.7 G/DL (12.0-16.0); MEAN CORPUSCULAR VOLUME 71 FL (80-99); PLATELET COUNT 410 K/UL (150-450); RED BLOOD COUNT 5.64 M/UL (4.20-5.40); RED CELL DISTRIBUTION WIDTH 16.8 % (11.6-14.8); WHITE BLOOD COUNT 20.3 K/UL (4.8-10.8)
[2018-11-02 09:06] VITALS: BP 198/78
[2018-11-02 09:08] LABS: APPEARANCE,URINE CLOUDY; BILIRUBIN, URINE NEGATIVE (NEGATIVE); GLUCOSE, URINE (UA) 1+ (NEGATIVE); KETONES,URINE 4+ (NEGATIVE); LEUKOCYTE ESTERASE ,URINE 3+ (NEGATIVE); NITRITE,URINE NEGATIVE (NEGATIVE); PH,URINE 6 (4.5-8.0); PROTEIN,URINE 3+ (NEGATIVE); UROBILINOGEN,URINE NORMAL MG/DL (0.0-1.0)
[2018-11-02 09:10] LABS: COLOR,URINE RED
[2018-11-02] MEDS ORDERED: cefTRIAXone 1 GM in NS 55 ML IVPB ONE (09:15)
[2018-11-02 09:27] LABS: ANION GAP 19 mmol/L (5-15); BLOOD UREA NITROGEN 24 mg/dL (7-18); CALCIUM 9.4 MG/DL (8.5-10.1); CARBON DIOXIDE 23 MMOL/L (21-32); CHLORIDE 100 MMOL/L (98-107); CREATININE 0.7 MG/DL (0.55-1.30); POTASSIUM 3.2 MMOL/L (3.5-5.1); SODIUM 142 MMOL/L (136-145)
[2018-11-02 09:30] LABS: ALANINE AMINOTRANSFERASE 19 U/L (12-78); ALBUMIN/GLOBULIN RATIO 0.9 (1.0-2.7); ALKALINE PHOSPHATASE 56 U/L (46-116); ASPARTATE AMINO TRANSFERASE 30 U/L (15-37); BILIRUBIN,TOTAL 0.6 MG/DL (0.2-1.0)
[2018-11-02 09:35] VITALS: BP 126/52
--- NOTE | 2018-11-02 09:35 | NUR ---
ED Nurse Note: patient reports she is on her menstrual period.
--- NOTE | 2018-11-02 09:56 | NUR ---
ED Nurse Note: patient taken to CT in stable condition.
--- NOTE | 2018-11-02 10:15 | NUR ---
ED Nurse Note: patient came back from CT in stable condition
--- NOTE | 2018-11-02 10:27 | NUR ---
ED Nurse Note: red tube sent to lab. VBG done, sent to respiratory.
[2018-11-02 10:28] VITALS: BP 130/72
--- NOTE | 2018-11-02 10:48 | Diagnostic Imaging Report ---
Indications: Pain Technique: Spiral acquisitions obtained through the brain. Angled axial and coronal 5 x 5 mm slices were reconstructed. Total dose length product 1428.87 mGycm. CTDI vol(s) 70.38 mGy. Dose reduction achieved using automated exposure control Comparison: None. Findings: No acute intracranial hemorrhage or edema, mass effect, or midline shift. Normal size ventricles and extra axial CSF spaces. Normal rankin-white differentiation. Visualized orbits are unremarkable. The sinuses are clear. The mastoids are clear. The calvarium is intact. Impression: Negative The CT scanner at [facility] is accredited by the [employer] and the scans are performed using protocols designed to limit radiation exposure to as low as reasonably achievable to attain images of sufficient resolution adequate for diagnostic evaluation.
--- NOTE | 2018-11-02 10:57 | Diagnostic Imaging Report ---
Clinical Indication: Abdominal pain, nausea, vomiting Technique: No oral contrast utilized, per emergency room physician request IV administration nonionic contrast. Venous phase spiral acquisition obtained through the abdomen and pelvis. Multiplanar reconstructions were generated. Total dose length product 689.59 mGycm. CTDIvol(s) 13.14 mGy. Dose reduction achieved using automated exposure control Comparison: 09/28/2018 Findings: Lack of enteric contrast limits assessment of the GI tract. There are a few colonic diverticula. No evidence of diverticulitis. Normal appendix. There are equivocally scattered areas of colonic wall thickening and slight infiltration of the pericolonic fat, particularly in the region of the sigmoid. No small bowel distention. No free or loculated intraperitoneal gas or fluid is evident. The distal esophagus demonstrates mild wall thickening, as previously. The stomach, duodenum are unremarkable. The liver demonstrates mild hypoattenuation. The gallbladder, bile ducts, pancreas, spleen are unremarkable. Again demonstrated is a 21 mm right adrenal nodule. Left adrenal is unremarkable. The both kidneys demonstrate cysts and subcentimeter low-attenuation lesions which are too small to characterize. No retroperitoneal or mesenteric mass or adenopathy. Again demonstrated is a uterine fibroid. The ovaries are unremarkable. The bones are unremarkable except for degenerative changes of the lumbosacral junction. The included lung bases are clear.. Impression: Limited assessment of the GI tract, due to lack of enteric contrast administration Equivocal mild scattered areas of colon wall thickening and slight infiltration of the pericolonic fat, doubtful significance but if real could indicate mild colitis changes. Correlate with clinical findings Mild distal esophageal wall thickening, also previously described, could indicate esophagitis No acute process otherwise Mild hepatic hypoattenuation, consistent with fatty change Stable 21 mm right adrenal nodule. Recommend further evaluation as previously recommended if not already undertaken Colonic diverticulosis. No evidence of diverticulitis Uterine fibroid, also previously reported Bilateral renal cysts and subcentimeter low-attenuation lesion measuring 2 small to characterize Degenerative spondylosis The CT scanner at [facility] is accredited by the [employer] and the scans are performed using protocols designed to limit radiation exposure to as low as reasonably achievable to attain images of sufficient resolution adequate for diagnostic evaluation.
--- NOTE | 2018-11-02 11:17 | Diagnostic Imaging Report ---
Indication: Chest pain Technique: One view of the chest Comparison: 09/28/2018 Findings: Lungs and pleural spaces are clear. Heart size is normal. No significant interim change Impression: No acute process
--- NOTE | 2018-11-02 11:20 | NUR ---
ED Nurse Note: Per Dr. Virk, it's ok to give Megnesium 1GM in 30 minutes.
--- NOTE | 2018-11-02 11:30 | NUR ---
ED Nurse Note: called 3E to give report, spoke with Agatha CHEN, Lucius RN is the receiving nurse, she is not available at the moment. will call back.
--- NOTE | 2018-11-02 11:55 | NUR ---
ED Nurse Note: report given to Lucius CHEN. endorsed all plan of care to Lucius RN. Unable to transfer the patient at this time, due to 2nd bag of Magnesium still infusing. Once 3rd bag of ordered magnesium is started, will transfer the patient.
--- NOTE | 2018-11-02 12:25 | NUR ---
ED Nurse Note: patient transferred to with [employer] with all of her belongings.
[2018-11-02 12:30] VITALS: BP 134/72
--- NOTE | 2018-11-02 12:30 | NUR ---
NURSE NOTES: PATIENT ARRIVED FROM ER DEPT. VIA RNEY AOX4. ALL BELONGINGS ACCOUNTED FOR. PATIENT DENIES PAIN AT THIS TIME. ORIENTED TO ROOM. BED IN LOW AND LOCKED POSITION. CALL LIGHT WITHIN REACH.WILL PLACE CALL TO DR. FRANZ/DEV TO NOTIFY OF PATIENT'S ARRIVAL TO FLOOR. PATIENT KEPT INFORMED.
[2018-11-02] MEDS ORDERED: Nitroglycerin Subl 0.4mg tab SL PRN (13:00)
[2018-11-02] MEDS ORDERED: Morphine Sulfate 2mg/ml Inj(IV/IM USE ONLY) IVP PRN (13:00)
[2018-11-02] MEDS ORDERED: Miralax 17gm pkt ORAL PRN (13:00)
[2018-11-02] MEDS: D5 1/2NS 1,000 ML IV SCH (13:49)
--- NOTE | 2018-11-02 14:11 | Consultation ---
History of Present Illness General Date patient seen: Nov 02, 2018 Chief Complaint: Vomiting Present Illness HPI 48 y/o F with hx of Dm2, cannabis use presented to ED on 11/02 with 1 day of nausea and multiple episodes of vomiting, not able to keep anything down. +achy abdominal pain, mild severity, constant Denied f/c, dysuria, CP, SOB Allergies: Coded Allergies: No Known Allergies (Unverified , 07/15/18) Medication History Scheduled Amlodipine Besylate (Norvasc), 5 MG ORAL DAILY Ciprofloxacin Hcl* (Ciprofloxacin Hcl*), 500 MG ORAL EVERY 12 HOURS Metformin Hcl* (Glucophage*), 1,000 MG ORAL BID Metronidazole* (Flagyl*), 500 MG ORAL Q8HR Pantoprazole* (Pantoprazole*), 40 MG ORAL DAILY Patient History Healthcare decision maker Resuscitation status Full Code Advanced Directive on File Patient History Narrative Pmhx: as above Shx: Reports: drug use - Cannabis Fhx: non contributory Review of Systems All Other Systems: negative except mentioned in HPI Physical Exam Physical Exam Narrative General Appearance: well appearing, no apparent distress, alert Head: normocephalic, atraumatic Eyes: bilateral eye PERRL, bilateral eye EOMI ENT: uvula midline, dry mucus membranes Neck: supple, thyroid normal, supple/symm/no masses Respiratory: lungs clear, no respiratory distress, no retraction, no accessory muscle use Cardiovascular #1: normal peripheral pulses, regular rate, rhythm, no edema, no gallop, no murmur Gastrointestinal: non tender, soft, no guarding, no rebound Musculoskeletal: normal inspection Neurologic: alert, oriented x3 Psychiatric: mood/affect normal Skin: no rash, warm/dry Last 24 Hour Vital Signs Date Time Temp Pulse Resp B/P (MAP) Pulse Ox O2 Delivery O2 Flow Rate FiO2 11/02/18 12:30 98.3 72 17 134/72 (92) 99 11/02/18 12:30 Room Air 11/02/18 12:25 97.2 71 18 130/72 100 Room Air 11/02/18 10:28 97.2 71 18 130/72 100 Room Air 11/02/18 09:35 97.2 72 15 126/52 100 Room Air 11/02/18 09:06 97.2 67 14 198/78 100 Room Air 11/02/18 08:35 73 12 Room Air 11/02/18 08:33 96.6 55 16 207/70 (115) 100 Room Air Laboratory Tests Test 11/02/18 08:35 11/02/18 09:15 11/02/18 09:45 11/02/18 10:30 White Blood Count 20.3 K/UL (4.8-10.8) H Red Blood Count 5.64 M/UL (4.20-5.40) H Hemoglobin 12.7 G/DL (12.0-16.0) Hematocrit 40.3 % (37.0-47.0) Mean Corpuscular Volume 71 FL (80-99) L Mean Corpuscular Hemoglobin 22.4 PG (27.0-31.0) L Mean Corpuscular Hemoglobin Concent 31.4 G/DL (32.0-36.0) L Red Cell Distribution Width 16.8 % (11.6-14.8) H Platelet Count 410 K/UL (150-450) Mean Platelet Volume 6.4 FL (6.5-10.1) L Neutrophils (%) (Auto) % (45.0-75.0) Lymphocytes (%) (Auto) % (20.0-45.0) Monocytes (%) (Auto) % (1.0-10.0) Eosinophils (%) (Auto) % (0.0-3.0) Basophils (%) (Auto) % (0.0-2.0) Differential Total Cells Counted 100 Neutrophils % (Manual) 80 % (45-75) H Lymphocytes % (Manual) 12 % (20-45) L Monocytes % (Manual) 8 % (1-10) Eosinophils % (Manual) 0 % (0-3) Basophils % (Manual) 0 % (0-2) Band Neutrophils 0 % (0-8) Platelet Estimate Adequate Platelet Morphology Normal Red Blood Cell Morphology Anisocytosis 1+ Microcytosis 2+ Urine Color Red Urine Appearance Cloudy Urine pH 6 (4.5-8.0) Urine Specific [place] 1.025 (1.005-1.035) Urine Protein 3+ (NEGATIVE) H Urine Glucose (UA) 1+ (NEGATIVE) H Urine Ketones 4+ (NEGATIVE) H Urine Blood 5+ (NEGATIVE) H Urine Nitrite Negative (NEGATIVE) Urine Bilirubin Negative (NEGATIVE) Urine Urobilinogen Normal MG/DL (0.0-1.0) Urine Leukocyte Esterase 3+ (NEGATIVE) H Urine RBC Tntc /HPF (0 - 2) H Urine WBC 30-40 /HPF (0 - 2) H Urine Squamous Epithelial Cells Many /LPF (NONE/OCC) H Urine Bacteria Few /HPF (NONE) Sodium Level 142 MMOL/L (136-145) Potassium Level 3.2 MMOL/L (3.5-5.1) L Chloride Level 100 MMOL/L (98-107) Carbon Dioxide Level 23 MMOL/L (21-32) Anion Gap 19 mmol/L (5-15) H Blood Urea Nitrogen 24 mg/dL (7-18) H Creatinine 0.7 MG/DL (0.55-1.30) Estimat Glomerular Filtration Rate > 60 mL/min (>60) Glucose Level 154 MG/DL (74-106) H Calcium Level 9.4 MG/DL (8.5-10.1) Total Bilirubin 0.6 MG/DL (0.2-1.0) Aspartate Amino Transf (AST/SGOT) 30 U/L (15-37) Alanine Aminotransferase (ALT/SGPT) 19 U/L (12-78) Alkaline Phosphatase 56 U/L (46-116) Troponin I 0.000 ng/mL (0.000-0.056) Total Protein 8.4 G/DL (6.4-8.2) H Albumin 4.0 G/DL (3.4-5.0) Globulin 4.4 g/dL Albumin/Globulin Ratio 0.9 (1.0-2.7) L Lipase 84 U/L (73-393) Urine Opiates Screen Negative (NEGATIVE) Urine Barbiturates Screen Negative (NEGATIVE) Phencyclidine (PCP) Screen Negative (NEGATIVE) Urine Amphetamines Screen Negative (NEGATIVE) Urine Benzodiazepines Screen Negative (NEGATIVE) Urine Cocaine Screen Negative (NEGATIVE) Urine Marijuana (THC) Screen Positive (NEGATIVE) H Magnesium Level 1.0 MG/DL (1.8-2.4) L Lactic Acid Level 1.40 mmol/L (0.4-2.0) Venous Blood pH 7.358 Venous Blood Partial Pressure CO2 42.9 Venous Blood Partial Pressure O2 < 45.3 Venous Blood HCO3 23.6 Venous Blood Total Carbon Dioxide Pending Venous Bld O2 Saturation (Measured) Pending Venous Blood Oxygen Saturation Venous Blood Base Excess -1.9 Methemoglobin Pending Sodium (Blood Gas) Pending Test 11/02/18 10:45 Acetone Level Positive-small (NEGATIVE) Height (Feet): 5 Height (Inches): 4.00 Weight (Pounds): 155 Medications Current Medications Medications (Trade) Dose Ordered Sig/Nicolas Route PRN Reason Start Time Stop Time Status Last Admin Dose Admin Acetaminophen (Tylenol) 650 mg Q4H PRN ORAL fever (temp>100.5F) 11/02/18 13:00 12/02/18 12:59 Dextrose (Dextrose 50%) 25 ml Q30M PRN IV Hypoglycemia 11/02/18 13:00 12/02/18 12:59 Dextrose (Dextrose 50%) 50 ml Q30M PRN IV Hypoglycemia 11/02/18 13:00 12/02/18 12:59 Dextrose/Sodium Chloride 1,000 ml @ 75 mls/hr [id number] IV 11/02/18 13:15 12/02/18 13:14 11/02/18 13:49 Diphenhydramine HCl (Benadryl) 25 mg Q6H PRN ORAL Itching/Pruritis 11/02/18 13:00 12/02/18 12:59 Heparin Sodium (Porcine) (Heparin 5000 units/ml) 5,000 units EVERY 12 HOURS SUBQ 11/02/18 21:00 12/02/18 20:59 Iopamidol (Isovue-300 100ml) 100 ml NOW PRN INJ Radiology Procedure 11/02/18 08:45 11/04/18 08:44 Magnesium Sulfate 100 ml @ 100 mls/hr Q1H IVPB 11/02/18 11:15 11/02/18 14:14 11/02/18 12:15 Morphine Sulfate (Morphine Sulfate) 2 mg Q4H PRN IVP severe Pain (Pain Scale 7-10) 11/02/18 13:00 11/09/18 12:59 Nitroglycerin (Ntg) 0.4 mg Q5M X 3 DOSES PRN SL Prn Chest Pain 11/02/18 13:00 12/02/18 12:59 Ondansetron HCl (Zofran) 4 mg Q6H PRN IVP Nausea & Vomiting 11/02/18 13:00 12/02/18 12:59 Pantoprazole (Protonix) 40 mg DAILY IVP 11/03/18 09:00 12/03/18 08:59 Polyethylene Glycol (Miralax) 17 gm HSPRN PRN ORAL Constipation 11/02/18 13:00 12/02/18 12:59 Temazepam (Restoril) 15 mg HSPRN PRN ORAL Insomnia 11/02/18 21:00 11/09/18 20:59 Assessment/Plan Assessment/Plan: Abx: Ceftriaxone x1 11/02 Assessment: Nausea, vomiting, abd pain Probable mild colitis -CT abd/p: Limited assessment of the GI tract, due to lack of enteric contrast administration. Equivocal mild scattered areas of colon wall thickening and slight infiltration of the pericolonic fat, doubtful significance but if real could indicate mild colitis changes. Correlate with clinical findings Mild distal esophageal wall thickening, also previously described, could indicate esophagitis. No acute process otherwise Mild hepatic hypoattenuation, consistent with fatty change. Stable 21 mm right adrenal nodule. Recommend further evaluation as previously recommended if not already undertaken. Colonic diverticulosis. No evidence of diverticulitis. Uterine fibroid, also previously reported. Bilateral renal cysts and subcentimeter low-attenuation lesion measuring 2 small to characterize. Degenerative spondylosis Afebrile Leukocytosis -CXR: no acute process -u/a wbc 40-60, nit neg, leuk +3 Dm2 cannabis use Plan: -Start PO CIpro and Flagyl -f/u cx -Monitor CBC/CMP, temperatures Thank you for this consultation. Will continue to follow along with you. Discussed with Mita Duncan M.D. Nov 02, 2018 14:11
[2018-11-02] MEDS: metroNIDAZOLE 500mg tab ORAL SCH ×2 (15:08→21:52)
[2018-11-02 16:00] VITALS: BP 162/79
--- NOTE | 2018-11-02 17:21 | NUR ---
NURSE NOTES: PATIENT RAMAINS STABLE. DENIES N/V. VSS. AFEBRILE.CALL LIGHT WITHIN REACH.
--- NOTE | 2018-11-02 19:04 | History & Physical ---
History and Physical History & Physicial Dictated for Int Med-Dr Dalton no. [id number]. Vivek Zavala MD Nov 02, 2018 19:04
--- NOTE | 2018-11-02 19:18 | NUR ---
HAND-OFF: Report given tO CASSIDY LEON RN.
--- NOTE | 2018-11-02 19:20 | NUR ---
NURSE NOTES: Received report from GUSTAVO Snider. Patient resting quietly, no distress noted, no nausea at this time. IV patent and intact. Bed in low position, locked, side rails up x2, call light within reach. Will continue to monitor.
[2018-11-02 20:00] VITALS: BP 129/71
--- NOTE | 2018-11-02 21:30 | History and Physical Report ---
DATE OF ADMISSION: 11/02/2018 CHIEF COMPLAINT: The patient is a 48-year-old, female, who presents with a chief complaint of nausea and vomiting. HISTORY OF PRESENT ILLNESS: The patient was admitted to [facility] on September of 2018. Please see history and physical and discharge summary dictated at that time. The patient has a history of cannabis use. The patient has history of intractable nausea and vomiting. The patient presented to [place] emergency room complaining of one-day history of intractable nausea and vomiting. The patient is unable to keep solids or liquids down. The patient also complains of epigastric abdominal pain. The patient presented to [place] emergency room. The patient was admitted with intractable vomiting. REVIEW OF SYSTEMS: CONSTITUTIONAL: The patient denies weight loss or weight gain. The patient denies fevers or chills. HEENT: The patient denies ear or throat pain. The patient denies headache. CARDIOVASCULAR: The patient denies palpitations or chest pain. CHEST: The patient denies wheeze or shortness of breath. ABDOMINAL: The patient complains of nausea and vomiting as above. The patient complains of epigastric pain as above. The patient denies constipation or diarrhea. NEUROMUSCULAR: The patient denies seizures or generalized weakness. GENITOURINARY: The patient denies dysuria or increased frequency of urination. PAST MEDICAL HISTORY: The patient denies. PAST SURGICAL HISTORY: The patient denies. CURRENT MEDICATIONS: 1. Hypertension. 2. Diabetes type 2. 3. Gastroesophageal reflux disease. PAST SURGICAL HISTORY: The patient denies. CURRENT MEDICATIONS: 1. Amlodipine 5 mg one tablet p.o. daily. 2. Metformin 1000 mg p.o. twice daily. 3. Pantoprazole 40 mg p.o. daily. ALLERGIES: No known drug allergies. SOCIAL HISTORY: The patient is single. The patient denies tobacco use. The patient admits to marijuana use almost daily. The patient denies alcohol use. The patient denies tobacco use. PHYSICAL EXAMINATION: VITAL SIGNS: Temperature 97.2, respirations 16, pulse 72, blood pressure 126/52. GENERAL: The patient is well-developed and well-nourished female, in no apparent distress. HEENT: Eyes, pupils are equal and responsive to light and accommodation. Extraocular movements are intact. NECK: Supple without lymphadenopathy. CHEST: Lungs are clear to auscultation bilaterally without wheezes or rales. CARDIOVASCULAR: Regular rate. S1 and S2 normal without murmurs, rubs, or gallops. ABDOMEN: Soft, nontender, and nondistended. Positive bowel sounds. No evidence of hepatosplenomegaly. Currently, no rebound or guarding noted. EXTREMITIES: Negative for clubbing, cyanosis, or edema. NEUROLOGIC: Cranial nerves II to XII are grossly intact without focal deficits. Motor strength is 5/5 bilaterally. Deep tendon reflexes are 2+ plantar. LABORATORY STUDIES: WBC 20.3, hemoglobin 12.7, hematocrit 40.3, platelets 410,000. Sodium 142, potassium 3.2, chloride 100, CO2 23, BUN 24, creatinine 0.7, glucose 154. Troponin 0.0. Urinalysis showed 3+ protein, 1+ glucose, 4+ ketones, 5+ blood, rbc's too numerous to count, wbc's 30 to 40. Urine toxicology was positive for marijuana. CT scan of the abdomen and pelvis revealed thickening of the esophagus consistent with esophagitis, otherwise no acute disease. CT of the brain was reported as no acute disease. ASSESSMENT: This is a 48-year-old female. 1. Nausea and vomiting. 2. Abdominal pain. 3. Hypertension. 4. Diabetes type 2. 5. Hypokalemia. 6. Marijuana abuse. TREATMENT: 1. Nausea with vomiting/abdominal pain. A Gastroenterology consultation has been obtained with Dr. Guillermo Dwyer. The patient is currently on a clear liquid diet. The patient is currently been offered Zofran p.r.n. for nausea and vomiting. We will follow recommendations of Gastroenterology. 2. Hypertension. Continue amlodipine as above. 3. Diabetes type 2. NovoLog sliding scale has been instituted. 4. Hypokalemia, the patient has received potassium in the emergency room. Vivek Zavala M.D. DR: Teresa JOB#: [id number] CC:
[2018-11-02] MEDS: Heparin 5000 units/ml inj SUBQ SCH (21:54)
[2018-11-03] VITALS (8 sets, daily range): BP systolic 110–175; BP diastolic 54–99
--- NOTE | 2018-11-03 01:07 | NUR ---
NURSE NOTES: c/o nausea, had small amount of clear liquid emesis. Given Zofran IVP as ordered. Comfort measures provided.
[2018-11-03] MEDS: D5 1/2NS 1,000 ML IV SCH (02:18)
[2018-11-03] MEDS: metroNIDAZOLE 500mg tab ORAL SCH ×3 (06:37→22:02)
[2018-11-03 06:46] LABS: BASOPHILS % (AUTO) 0.5 % (0.0-2.0); EOSINOPHILS % (AUTO) 0.1 % (0.0-3.0); HEMATOCRIT 35.6 % (37.0-47.0); HEMOGLOBIN 11.3 G/DL (12.0-16.0); LYMPHOCYTES % (AUTO) 13.5 % (20.0-45.0); MEAN CORPUSCULAR VOLUME 72 FL (80-99); MONOCYTES % (AUTO) 5.3 % (1.0-10.0); NEUTROPHILS % (AUTO) 80.7 % (45.0-75.0); PLATELET COUNT 322 K/UL (150-450); RED BLOOD COUNT 4.93 M/UL (4.20-5.40); RED CELL DISTRIBUTION WIDTH 16.7 % (11.6-14.8); WHITE BLOOD COUNT 14.7 K/UL (4.8-10.8)
--- NOTE | 2018-11-03 07:40 | NUR ---
HAND-OFF: Report given to GUSTAVO Salazar. Rounds done, patient asleep, no distress noted.
--- NOTE | 2018-11-03 07:50 | NUR ---
NURSE NOTES: Patient asleep, on room air, no sign of distress and shortness of breath; no sing of chest pain; IV LAC 20G D51/2NS 75cc running; RAC 20G flushes well; patient NPO except medications; bed at lowest position, side rails up x2, breaks engaged; call light within reach; will keep monitoring.
[2018-11-03 07:52] LABS: ALANINE AMINOTRANSFERASE 21 U/L (12-78); ALBUMIN 3.3 G/DL (3.4-5.0); ALBUMIN/GLOBULIN RATIO 0.9 (1.0-2.7); ALKALINE PHOSPHATASE 54 U/L (46-116); AMYLASE 64 U/L (25-115); ANION GAP 13 mmol/L (5-15); ASPARTATE AMINO TRANSFERASE 22 U/L (15-37); BILIRUBIN,TOTAL 0.4 MG/DL (0.2-1.0); BLOOD UREA NITROGEN 12 mg/dL (7-18); CALCIUM 8.2 MG/DL (8.5-10.1); CARBON DIOXIDE 24 MMOL/L (21-32); CHLORIDE 103 MMOL/L (98-107); CREATININE 0.6 MG/DL (0.55-1.30); POTASSIUM 2.8 MMOL/L (3.5-5.1); SODIUM 140 MMOL/L (136-145)
[2018-11-03] MEDS: Ciprofloxacin 500mg tab ORAL SCH ×2 (09:07→22:02)
[2018-11-03] MEDS: Pantoprazole Inj IVP SCH (09:07)
[2018-11-03] MEDS: Heparin 5000 units/ml inj SUBQ SCH ×2 (09:09→22:03)
--- NOTE | 2018-11-03 10:51 | General Progress Note ---
Assessment/Plan Problem List: (1) Gastroparesis due to DM ICD Codes: E11.43 - Type 2 diabetes mellitus with diabetic autonomic (poly) neuropathy; K31.84 - Gastroparesis SNOMED: 054737891 (2) Hypokalemia ICD Codes: E87.6 - Hypokalemia SNOMED: 17205931 (3) DM (diabetes mellitus) ICD Codes: E11.9 - Type 2 diabetes mellitus without complications SNOMED: 87571931 Qualifiers: Qualified Codes: E11.9 - Type 2 diabetes mellitus without complications (4) Cannabinoid hyperemesis syndrome ICD Codes: F12.988 - Cannabis use, unspecified with other cannabis-induced disorder SNOMED: 123191676, 601628499 Assessment/Plan: ct reviewed ppi advance diet fu labs Subjective ROS Limited/Unobtainable: Yes Allergies: Coded Allergies: No Known Allergies (Unverified , 07/15/18) Subjective no abd pain no disrrhea no vomiting wants to eat Objective Last 24 Hour Vital Signs Date Time Temp Pulse Resp B/P (MAP) Pulse Ox O2 Delivery O2 Flow Rate FiO2 11/03/18 09:00 Room Air 11/03/18 08:00 98.3 72 18 138/73 (94) 98 11/03/18 04:05 98.4 66 18 130/88 (102) 99 11/03/18 02:15 60 17 110/54 (72) 11/03/18 01:15 98.2 66 18 172/76 (108) 99 11/02/18 21:00 Room Air 11/02/18 20:00 98.5 67 18 129/71 (90) 98 11/02/18 16:00 98.2 68 18 162/79 (106) 98 11/02/18 12:30 98.3 72 17 134/72 (92) 99 11/02/18 12:30 Room Air 11/02/18 12:25 97.2 71 18 130/72 100 Room Air Intake and Output 11/02/18 11/03/18 18:59 06:59 Intake Total 300 ml 825 ml Balance 300 ml 825 ml Intake IV Total 300 ml 825 ml # Bowel Movements 1 Laboratory Tests 11/03/18 05:15: White Blood Count 14.7H, Red Blood Count 4.93, Hemoglobin 11.3L, Hematocrit 35.6L, Mean Corpuscular Volume 72L, Mean Corpuscular Hemoglobin 22.8L, Mean Corpuscular Hemoglobin Concent 31.6L, Red Cell Distribution Width 16.7H, Platelet Count 322, Mean Platelet Volume 6.5, Neutrophils (%) (Auto) 80.7H, Lymphocytes (%) (Auto) 13.5L, Monocytes (%) (Auto) 5.3, Eosinophils (%) (Auto) 0.1, Basophils (%) (Auto) 0.5, Activated Partial Thromboplast Time 28, Sodium Level 140, Potassium Level 2.8L, Chloride Level 103, Carbon Dioxide Level 24, Anion Gap 13, Blood Urea Nitrogen 12, Creatinine 0.6, Estimat Glomerular Filtration Rate > 60, Glucose Level 162H, Calcium Level 8.2L, Total Bilirubin 0.4, Aspartate Amino Transf (AST/SGOT) 22, Alanine Aminotransferase (ALT/SGPT) 21, Alkaline Phosphatase 54, Total Protein 7.1, Albumin 3.3L, Globulin 3.8, Albumin/Globulin Ratio 0.9L, Amylase Level 64, Lipase 122 Height (Feet): 5 Height (Inches): 4.00 Weight (Pounds): 155 General Appearance: alert EENT: normal ENT inspection Neck: normal alignment, supple Cardiovascular: normal rate Respiratory/Chest: decreased breath sounds Abdomen: normal bowel sounds, non tender, soft Extremities: non-tender Guillermo Dwyer MD Nov 03, 2018 10:51
[2018-11-03] MEDS ORDERED: CIPROFLOXACIN500 M2 ORAL (12:08)
[2018-11-03] MEDS ORDERED: FLAGYL500 MG ORAL (12:08)
--- NOTE | 2018-11-03 12:11 | Consultation ---
History of Present Illness General Date patient seen: Nov 03, 2018 Chief Complaint: Vomiting Present Illness HPI 48-year-old female history of diabetes history of cannabis use presents with nausea and vomiting x1 day no aggravating or alleviating factors, patient states she is vomited multiple times not able to keep anything down, no fevers no chills she does endorse achy abdominal pain mild severity constant patient denies any dysuria, she does endorse using cannabis 2 days prior to arrival. Patient denies any chest pain shortness of breath. Allergies: Coded Allergies: No Known Allergies (Unverified , 07/15/18) Medication History Scheduled Amlodipine Besylate (Norvasc), 5 MG ORAL DAILY Ciprofloxacin Hcl* (Ciprofloxacin Hcl*), 500 MG ORAL EVERY 12 HOURS Metformin Hcl* (Glucophage*), 1,000 MG ORAL BID Metronidazole* (Flagyl*), 500 MG ORAL Q8HR Pantoprazole* (Pantoprazole*), 40 MG ORAL DAILY Patient History Healthcare decision maker Resuscitation status Full Code Advanced Directive on File Past Medical/Surgical History Past Medical/Surgical History: (1) Cannabis abuse (2) DM (diabetes mellitus) Review of Systems All Other Systems: negative except mentioned in HPI Physical Exam General Appearance: WD/WN Lines, tubes and drains: peripheral, central line HEENT: normocephalic, atraumatic Neck: non-tender, normal alignment Respiratory/Chest: chest wall non-tender, normal breath sounds Cardiovascular/Chest: normal peripheral pulses, regularly irregular Last 24 Hour Vital Signs Date Time Temp Pulse Resp B/P (MAP) Pulse Ox O2 Delivery O2 Flow Rate FiO2 11/03/18 09:00 Room Air 11/03/18 08:00 98.3 72 18 138/73 (94) 98 11/03/18 04:05 98.4 66 18 130/88 (102) 99 11/03/18 02:15 60 17 110/54 (72) 11/03/18 01:15 98.2 66 18 172/76 (108) 99 11/02/18 21:00 Room Air 11/02/18 20:00 98.5 67 18 129/71 (90) 98 11/02/18 16:00 98.2 68 18 162/79 (106) 98 11/02/18 12:30 98.3 72 17 134/72 (92) 99 11/02/18 12:30 Room Air 11/02/18 12:25 97.2 71 18 130/72 100 Room Air Intake and Output 11/02/18 11/03/18 18:59 06:59 Intake Total 300 ml 825 ml Balance 300 ml 825 ml Intake IV Total 300 ml 825 ml # Bowel Movements 1 Laboratory Tests Test 11/03/18 05:15 White Blood Count 14.7 K/UL (4.8-10.8) H Red Blood Count 4.93 M/UL (4.20-5.40) Hemoglobin 11.3 G/DL (12.0-16.0) L Hematocrit 35.6 % (37.0-47.0) L Mean Corpuscular Volume 72 FL (80-99) L Mean Corpuscular Hemoglobin 22.8 PG (27.0-31.0) L Mean Corpuscular Hemoglobin Concent 31.6 G/DL (32.0-36.0) L Red Cell Distribution Width 16.7 % (11.6-14.8) H Platelet Count 322 K/UL (150-450) Mean Platelet Volume 6.5 FL (6.5-10.1) Neutrophils (%) (Auto) 80.7 % (45.0-75.0) H Lymphocytes (%) (Auto) 13.5 % (20.0-45.0) L Monocytes (%) (Auto) 5.3 % (1.0-10.0) Eosinophils (%) (Auto) 0.1 % (0.0-3.0) Basophils (%) (Auto) 0.5 % (0.0-2.0) Activated Partial Thromboplast Time 28 SEC (23-33) Sodium Level 140 MMOL/L (136-145) Potassium Level 2.8 MMOL/L (3.5-5.1) L Chloride Level 103 MMOL/L (98-107) Carbon Dioxide Level 24 MMOL/L (21-32) Anion Gap 13 mmol/L (5-15) Blood Urea Nitrogen 12 mg/dL (7-18) Creatinine 0.6 MG/DL (0.55-1.30) Estimat Glomerular Filtration Rate > 60 mL/min (>60) Glucose Level 162 MG/DL (74-106) H Calcium Level 8.2 MG/DL (8.5-10.1) L Total Bilirubin 0.4 MG/DL (0.2-1.0) Aspartate Amino Transf (AST/SGOT) 22 U/L (15-37) Alanine Aminotransferase (ALT/SGPT) 21 U/L (12-78) Alkaline Phosphatase 54 U/L (46-116) Total Protein 7.1 G/DL (6.4-8.2) Albumin 3.3 G/DL (3.4-5.0) L Globulin 3.8 g/dL Albumin/Globulin Ratio 0.9 (1.0-2.7) L Amylase Level 64 U/L (25-115) Lipase 122 U/L (73-393) Height (Feet): 5 Height (Inches): 4.00 Weight (Pounds): 155 Medications Current Medications Medications (Trade) Dose Ordered Sig/Nicolas Route PRN Reason Start Time Stop Time Status Last Admin Dose Admin Acetaminophen (Tylenol) 650 mg Q4H PRN ORAL fever (temp>100.5F) 11/02/18 13:00 12/02/18 12:59 Ciprofloxacin (Cipro 500mg tab) 500 mg EVERY 12 HOURS ORAL 11/03/18 09:00 11/10/18 08:59 11/03/18 09:07 Dextrose (Dextrose 50%) 25 ml Q30M PRN IV Hypoglycemia 11/02/18 13:00 12/02/18 12:59 Dextrose (Dextrose 50%) 50 ml Q30M PRN IV Hypoglycemia 11/02/18 13:00 12/02/18 12:59 Diphenhydramine HCl (Benadryl) 25 mg Q6H PRN ORAL Itching/Pruritis 11/02/18 13:00 12/02/18 12:59 Heparin Sodium (Porcine) (Heparin 5000 units/ml) 5,000 units EVERY 12 HOURS SUBQ 11/02/18 21:00 12/02/18 20:59 11/03/18 09:09 Iopamidol (Isovue-300 100ml) 100 ml NOW PRN INJ Radiology Procedure 11/02/18 08:45 11/04/18 08:44 Metronidazole (Flagyl) 500 mg Q8HR ORAL 11/02/18 15:00 11/09/18 14:59 11/03/18 06:37 Morphine Sulfate (Morphine Sulfate) 2 mg Q4H PRN IVP severe Pain (Pain Scale 7-10) 11/02/18 13:00 11/09/18 12:59 Nitroglycerin (Ntg) 0.4 mg Q5M X 3 DOSES PRN SL Prn Chest Pain 11/02/18 13:00 12/02/18 12:59 Ondansetron HCl (Zofran) 4 mg Q6H PRN IVP Nausea & Vomiting 11/02/18 13:00 12/02/18 12:59 11/03/18 06:37 Pantoprazole (Protonix) 40 mg DAILY IVP 11/03/18 09:00 12/03/18 08:59 11/03/18 09:07 Polyethylene Glycol (Miralax) 17 gm HSPRN PRN ORAL Constipation 11/02/18 13:00 12/02/18 12:59 Temazepam (Restoril) 15 mg HSPRN PRN ORAL Insomnia 11/02/18 21:00 11/09/18 20:59 Assessment/Plan Problem List: (1) Cannabinoid hyperemesis syndrome ICD Codes: F12.988 - Cannabis use, unspecified with other cannabis-induced disorder SNOMED: 470506630, 026600091 (2) Cannabis abuse ICD Codes: F12.10 - Cannabis abuse, uncomplicated SNOMED: 58723979 (3) Gastroparesis due to DM ICD Codes: E11.43 - Type 2 diabetes mellitus with diabetic autonomic (poly) neuropathy; K31.84 - Gastroparesis SNOMED: 614996652 (4) DM (diabetes mellitus) ICD Codes: E11.9 - Type 2 diabetes mellitus without complications SNOMED: 84055577 Qualifiers: Qualified Codes: E11.9 - Type 2 diabetes mellitus without complications Assessment/Plan: improving iv fluids continue abx for possible uti and enteritis dc home when started tolerating oral diet. Bailey Vance MD Nov 03, 2018 12:11
--- NOTE | 2018-11-03 12:48 | NUR ---
NURSE NOTES: Patient couldn't able to eat her lunch; patient stated that she doesn't feel comfortable eating it now; RN encouraged patient to try some and left the tray at the bed side.
--- NOTE | 2018-11-03 13:09 | Infectious Diseases Prog Note ---
Assessment/Plan Assessment/Plan Abx: Ceftriaxone x1 11/02 Assessment: Nausea, vomiting, abd pain Probable mild colitis -CT abd/p: Limited assessment of the GI tract, due to lack of enteric contrast administration. Equivocal mild scattered areas of colon wall thickening and slight infiltration of the pericolonic fat, doubtful significance but if real could indicate mild colitis changes. Correlate with clinical findings Mild distal esophageal wall thickening, also previously described, could indicate esophagitis. No acute process otherwise Mild hepatic hypoattenuation, consistent with fatty change. Stable 21 mm right adrenal nodule. Recommend further evaluation as previously recommended if not already undertaken. Colonic diverticulosis. No evidence of diverticulitis. Uterine fibroid, also previously reported. Bilateral renal cysts and subcentimeter low-attenuation lesion measuring 2 small to characterize. Degenerative spondylosis Afebrile Leukocytosis, improving -CXR: no acute process -u/a wbc 40-60, nit neg, leuk +3; ucx NTD Dm2 cannabis use Plan: -Cont PO CIpro and Flagyl #2/5 -f/u cx -Monitor CBC/CMP, temperatures Thank you for this consultation. Will continue to follow along with you. Discussed with RN. Subjective Allergies: Coded Allergies: No Known Allergies (Unverified , 07/15/18) Subjective afebrile leukocytosis improving Objective Vital Signs Last 24 Hour Vital Signs Date Time Temp Pulse Resp B/P (MAP) Pulse Ox O2 Delivery O2 Flow Rate FiO2 11/03/18 13:00 98.3 59 18 143/79 (100) 97 11/03/18 12:00 97.6 66 18 175/99 (124) 99 11/03/18 09:00 Room Air 11/03/18 08:00 98.3 72 18 138/73 (94) 98 11/03/18 04:05 98.4 66 18 130/88 (102) 99 11/03/18 02:15 60 17 110/54 (72) 11/03/18 01:15 98.2 66 18 172/76 (108) 99 11/02/18 21:00 Room Air 11/02/18 20:00 98.5 67 18 129/71 (90) 98 11/02/18 16:00 98.2 68 18 162/79 (106) 98 Height (Feet): 5 Height (Inches): 4.00 Weight (Pounds): 155 Objective General Appearance: well appearing, no apparent distress, alert Head: normocephalic, atraumatic Eyes: bilateral eye PERRL, bilateral eye EOMI ENT: uvula midline, dry mucus membranes Neck: supple, thyroid normal, supple/symm/no masses Respiratory: lungs clear, no respiratory distress, no retraction, no accessory muscle use Cardiovascular #1: normal peripheral pulses, regular rate, rhythm, no edema, no gallop, no murmur Gastrointestinal: non tender, soft, no guarding, no rebound Musculoskeletal: normal inspection Neurologic: alert, oriented x3 Psychiatric: mood/affect normal Skin: no rash, warm/dry Microbiology Date/Time Source Procedure Growth Status 11/02/18 08:35 Urine,Clean Catch Urine Culture - Preliminary NO GROWTH Resulted Laboratory Tests Test 11/03/18 05:15 White Blood Count 14.7 K/UL (4.8-10.8) H Red Blood Count 4.93 M/UL (4.20-5.40) Hemoglobin 11.3 G/DL (12.0-16.0) L Hematocrit 35.6 % (37.0-47.0) L Mean Corpuscular Volume 72 FL (80-99) L Mean Corpuscular Hemoglobin 22.8 PG (27.0-31.0) L Mean Corpuscular Hemoglobin Concent 31.6 G/DL (32.0-36.0) L Red Cell Distribution Width 16.7 % (11.6-14.8) H Platelet Count 322 K/UL (150-450) Mean Platelet Volume 6.5 FL (6.5-10.1) Neutrophils (%) (Auto) 80.7 % (45.0-75.0) H Lymphocytes (%) (Auto) 13.5 % (20.0-45.0) L Monocytes (%) (Auto) 5.3 % (1.0-10.0) Eosinophils (%) (Auto) 0.1 % (0.0-3.0) Basophils (%) (Auto) 0.5 % (0.0-2.0) Activated Partial Thromboplast Time 28 SEC (23-33) Sodium Level 140 MMOL/L (136-145) Potassium Level 2.8 MMOL/L (3.5-5.1) L Chloride Level 103 MMOL/L (98-107) Carbon Dioxide Level 24 MMOL/L (21-32) Anion Gap 13 mmol/L (5-15) Blood Urea Nitrogen 12 mg/dL (7-18) Creatinine 0.6 MG/DL (0.55-1.30) Estimat Glomerular Filtration Rate > 60 mL/min (>60) Glucose Level 162 MG/DL (74-106) H Calcium Level 8.2 MG/DL (8.5-10.1) L Total Bilirubin 0.4 MG/DL (0.2-1.0) Aspartate Amino Transf (AST/SGOT) 22 U/L (15-37) Alanine Aminotransferase (ALT/SGPT) 21 U/L (12-78) Alkaline Phosphatase 54 U/L (46-116) Total Protein 7.1 G/DL (6.4-8.2) Albumin 3.3 G/DL (3.4-5.0) L Globulin 3.8 g/dL Albumin/Globulin Ratio 0.9 (1.0-2.7) L Amylase Level 64 U/L (25-115) Lipase 122 U/L (73-393) Current Medications Medications (Trade) Dose Ordered Sig/Nicolas Route PRN Reason Start Time Stop Time Status Last Admin Dose Admin Acetaminophen (Tylenol) 650 mg Q4H PRN ORAL fever (temp>100.5F) 11/02/18 13:00 12/02/18 12:59 Ciprofloxacin (Cipro 500mg tab) 500 mg EVERY 12 HOURS ORAL 11/03/18 09:00 11/10/18 08:59 11/03/18 09:07 Dextrose (Dextrose 50%) 25 ml Q30M PRN IV Hypoglycemia 11/02/18 13:00 12/02/18 12:59 Dextrose (Dextrose 50%) 50 ml Q30M PRN IV Hypoglycemia 11/02/18 13:00 12/02/18 12:59 Diphenhydramine HCl (Benadryl) 25 mg Q6H PRN ORAL Itching/Pruritis 11/02/18 13:00 12/02/18 12:59 Heparin Sodium (Porcine) (Heparin 5000 units/ml) 5,000 units EVERY 12 HOURS SUBQ 11/02/18 21:00 12/02/18 20:59 11/03/18 09:09 Iopamidol (Isovue-300 100ml) 100 ml NOW PRN INJ Radiology Procedure 11/02/18 08:45 11/04/18 08:44 Metronidazole (Flagyl) 500 mg Q8HR ORAL 11/02/18 15:00 11/09/18 14:59 11/03/18 13:05 Morphine Sulfate (Morphine Sulfate) 2 mg Q4H PRN IVP severe Pain (Pain Scale 7-10) 11/02/18 13:00 11/09/18 12:59 Nitroglycerin (Ntg) 0.4 mg Q5M X 3 DOSES PRN SL Prn Chest Pain 11/02/18 13:00 12/02/18 12:59 Ondansetron HCl (Zofran) 4 mg Q6H PRN IVP Nausea & Vomiting 11/02/18 13:00 12/02/18 12:59 11/03/18 06:37 Pantoprazole (Protonix) 40 mg DAILY IVP 11/03/18 09:00 12/03/18 08:59 11/03/18 09:07 Polyethylene Glycol (Miralax) 17 gm HSPRN PRN ORAL Constipation 11/02/18 13:00 12/02/18 12:59 Temazepam (Restoril) 15 mg HSPRN PRN ORAL Insomnia 11/02/18 21:00 11/09/18 20:59 Mita Almaguer M.D. Nov 03, 2018 13:09
--- NOTE | 2018-11-03 13:46 | NUR ---
CASE MANAGEMENT: INITIAL REVIEW 48 YO F PRESENTED TO OUR ED FROM HOME CC: VOMITING PMHx: SI:INTRACTABLE NAUSEA AND VOMITING. LEUKOCYTOSIS. T 96.6 HR 55 RR 16 B/P 207/70 SATS 100% ON RA WBC 20.3 K 3.2 BUN 24 GLU 154 UTOX (+THC) IS: PEPCID IV X1 NS BOLUS X1 D5NS IV X1 BENADRYL IV X1 HALDOL IM X1 CEFTRIAXONE IV X1 PATIENT ADMITTED TO MED/SURG STATUS 11/02/2018 @ 0940 DCP: PATIENT TO BE DISCHARGED TO HOME ONCE MEDICALLY CLEARED. Addendum: 11/03/18 at 1843 by Renate Huitron CM INTERQUAL MET
--- NOTE | 2018-11-03 16:58 | NUR ---
NURSE NOTES: Patient's discharge held, patient still fells nauseated and vomiting. Zofran given. MD Vance and charge nurse Dorie notified.
--- NOTE | 2018-11-03 17:13 | Internal Med Progress Note ---
Subjective Date of Service: Nov 03, 2018 Physician Name Vivek Zavala Attending Physician Marc Dalton MD Current Medications Medications (Trade) Dose Ordered Sig/Nicolas Route PRN Reason Start Time Stop Time Status Last Admin Dose Admin Acetaminophen (Tylenol) 650 mg Q4H PRN ORAL fever (temp>100.5F) 11/02/18 13:00 12/02/18 12:59 Ciprofloxacin (Cipro 500mg tab) 500 mg EVERY 12 HOURS ORAL 11/03/18 09:00 11/10/18 08:59 11/03/18 09:07 Dextrose (Dextrose 50%) 25 ml Q30M PRN IV Hypoglycemia 11/02/18 13:00 12/02/18 12:59 Dextrose (Dextrose 50%) 50 ml Q30M PRN IV Hypoglycemia 11/02/18 13:00 12/02/18 12:59 Diphenhydramine HCl (Benadryl) 25 mg Q6H PRN ORAL Itching/Pruritis 11/02/18 13:00 12/02/18 12:59 Heparin Sodium (Porcine) (Heparin 5000 units/ml) 5,000 units EVERY 12 HOURS SUBQ 11/02/18 21:00 12/02/18 20:59 11/03/18 09:09 Iopamidol (Isovue-300 100ml) 100 ml NOW PRN INJ Radiology Procedure 11/02/18 08:45 11/04/18 08:44 Metronidazole (Flagyl) 500 mg Q8HR ORAL 11/02/18 15:00 11/09/18 14:59 11/03/18 13:05 Morphine Sulfate (Morphine Sulfate) 2 mg Q4H PRN IVP severe Pain (Pain Scale 7-10) 11/02/18 13:00 11/09/18 12:59 Nitroglycerin (Ntg) 0.4 mg Q5M X 3 DOSES PRN SL Prn Chest Pain 11/02/18 13:00 12/02/18 12:59 Ondansetron HCl (Zofran) 4 mg Q6H PRN IVP Nausea & Vomiting 11/02/18 13:00 12/02/18 12:59 11/03/18 15:37 Pantoprazole (Protonix) 40 mg DAILY IVP 11/03/18 09:00 12/03/18 08:59 11/03/18 09:07 Polyethylene Glycol (Miralax) 17 gm HSPRN PRN ORAL Constipation 11/02/18 13:00 12/02/18 12:59 Temazepam (Restoril) 15 mg HSPRN PRN ORAL Insomnia 11/02/18 21:00 11/09/18 20:59 Allergies: Coded Allergies: No Known Allergies (Unverified , 07/15/18) ROS Limited/Unobtainable: No Constitutional: Reports: no symptoms HEENT: Reports: no symptoms Cardiovascular: Reports: no symptoms Respiratory: Reports: no symptoms Gastrointestinal/Abdominal: Reports: nausea, vomiting Genitourinary: Reports: no symptoms Neurologic/Psychiatric: Reports: no symptoms Subjective 48 YO F admitted with nausea and vomiting. Now UTI and cannabinoid hyperemesis syndrome. Cover for Int Remigio-Dr Dalton Objective Last Vital Signs Date Time Temp Pulse Resp B/P (MAP) Pulse Ox O2 Delivery O2 Flow Rate FiO2 11/03/18 13:00 98.3 59 18 143/79 (100) 97 11/03/18 09:00 Room Air Laboratory Tests Test 11/03/18 05:15 White Blood Count 14.7 K/UL (4.8-10.8) H Red Blood Count 4.93 M/UL (4.20-5.40) Hemoglobin 11.3 G/DL (12.0-16.0) L Hematocrit 35.6 % (37.0-47.0) L Mean Corpuscular Volume 72 FL (80-99) L Mean Corpuscular Hemoglobin 22.8 PG (27.0-31.0) L Mean Corpuscular Hemoglobin Concent 31.6 G/DL (32.0-36.0) L Red Cell Distribution Width 16.7 % (11.6-14.8) H Platelet Count 322 K/UL (150-450) Mean Platelet Volume 6.5 FL (6.5-10.1) Neutrophils (%) (Auto) 80.7 % (45.0-75.0) H Lymphocytes (%) (Auto) 13.5 % (20.0-45.0) L Monocytes (%) (Auto) 5.3 % (1.0-10.0) Eosinophils (%) (Auto) 0.1 % (0.0-3.0) Basophils (%) (Auto) 0.5 % (0.0-2.0) Activated Partial Thromboplast Time 28 SEC (23-33) Sodium Level 140 MMOL/L (136-145) Potassium Level 2.8 MMOL/L (3.5-5.1) L Chloride Level 103 MMOL/L (98-107) Carbon Dioxide Level 24 MMOL/L (21-32) Anion Gap 13 mmol/L (5-15) Blood Urea Nitrogen 12 mg/dL (7-18) Creatinine 0.6 MG/DL (0.55-1.30) Estimat Glomerular Filtration Rate > 60 mL/min (>60) Glucose Level 162 MG/DL (74-106) H Calcium Level 8.2 MG/DL (8.5-10.1) L Total Bilirubin 0.4 MG/DL (0.2-1.0) Aspartate Amino Transf (AST/SGOT) 22 U/L (15-37) Alanine Aminotransferase (ALT/SGPT) 21 U/L (12-78) Alkaline Phosphatase 54 U/L (46-116) Total Protein 7.1 G/DL (6.4-8.2) Albumin 3.3 G/DL (3.4-5.0) L Globulin 3.8 g/dL Albumin/Globulin Ratio 0.9 (1.0-2.7) L Amylase Level 64 U/L (25-115) Lipase 122 U/L (73-393) Microbiology Date/Time Source Procedure Growth Status 11/02/18 08:35 Urine,Clean Catch Urine Culture - Preliminary NO GROWTH Resulted Intake and Output 11/02/18 11/03/18 19:00 07:00 Intake Total 375 ml 825 ml Balance 375 ml 825 ml Intake IV Total 375 ml 825 ml # Bowel Movements 1 Objective PHYSICAL EXAMINATION: GENERAL: The patient is well-developed and well-nourished female, in no apparent distress. HEENT: Eyes, pupils are equal and responsive to light and accommodation. Extraocular movements are intact. NECK: Supple without lymphadenopathy. CHEST: Lungs are clear to auscultation bilaterally without wheezes or rales. CARDIOVASCULAR: Regular rate. S1 and S2 normal without murmurs, rubs, or gallops. ABDOMEN: Soft, nontender, and nondistended. Positive bowel sounds. No evidence of hepatosplenomegaly. Currently, no rebound or guarding noted. EXTREMITIES: Negative for clubbing, cyanosis, or edema. NEUROLOGIC: Cranial nerves II to XII are grossly intact without focal deficits. Motor strength is 5/5 bilaterally. Deep tendon reflexes are 2+ plantar. Assessment/Plan Assessment/Plan ASSESSMENT: This is a 48-year-old female. 1. Nausea and vomiting. 2. Abdominal pain. 3. Hypertension. 4. Diabetes type 2. 5. Hypokalemia. 6. Marijuana abuse. TREATMENT: 1. Nausea with vomiting/abdominal pain. Cannabinoid hyperemesis syndrome. A Gastroenterology consultation has been obtained with Dr. Guillermo Dwyer. The patient is currently tolerating a diabetic diet. The patient is currently been offered Zofran p.r.n. for nausea and vomiting. We will follow recommendations of Gastroenterology. 2. Hypertension. Continue amlodipine as above. 3. Diabetes type 2. NovoLog sliding scale has been instituted. 4. Hypokalemia, the patient has received potassium in the emergency room. Vivek Zavala MD Nov 03, 2018 17:13
--- NOTE | 2018-11-03 18:10 | NUR ---
NURSE NOTES: Patient didn't eat her dinner; RN offered Jepaulaos; will keep monitoring.
--- NOTE | 2018-11-03 19:09 | NUR ---
HAND-OFF: Report given to GUSTAVO Ferris.
--- NOTE | 2018-11-03 19:10 | NUR ---
NURSE NOTES: Received report from GUSTAVO Lenz. Patient sleeping, easily awaken. Saline locks bilat AC, intact. No nausea at this time. No complains of pain. Addendum: 11/03/18 at 2058 by Anushka Ferris RN Bed in low position, locked, side rails up x2, call light within reach, will continue to monitor.
[2018-11-04] VITALS: BP 114/57
--- NOTE | 2018-11-04 04:57 | NUR ---
NURSE NOTES: Patient vomited approx 100 cc clear fluid, given Zofran with good relief. Will continue to monitor.
[2018-11-04 05:00] VITALS: BP 150/78
[2018-11-04 06:23] LABS: ANION GAP 13 mmol/L (5-15); BLOOD UREA NITROGEN 8 mg/dL (7-18); CALCIUM 8.4 MG/DL (8.5-10.1); CARBON DIOXIDE 24 MMOL/L (21-32); CHLORIDE 101 MMOL/L (98-107); CREATININE 0.6 MG/DL (0.55-1.30); POTASSIUM 2.9 MMOL/L (3.5-5.1); SODIUM 138 MMOL/L (136-145)
[2018-11-04 06:38] LABS: BASOPHILS % (AUTO) 0.6 % (0.0-2.0); EOSINOPHILS % (AUTO) 0.3 % (0.0-3.0); HEMATOCRIT 37.2 % (37.0-47.0); HEMOGLOBIN 11.7 G/DL (12.0-16.0); MEAN CORPUSCULAR VOLUME 72 FL (80-99); MONOCYTES % (AUTO) 7.3 % (1.0-10.0); NEUTROPHILS % (AUTO) 73.9 % (45.0-75.0); PLATELET COUNT 349 K/UL (150-450); RED BLOOD COUNT 5.17 M/UL (4.20-5.40); RED CELL DISTRIBUTION WIDTH 16.3 % (11.6-14.8); WHITE BLOOD COUNT 10.6 K/UL (4.8-10.8)
[2018-11-04] MEDS: metroNIDAZOLE 500mg tab ORAL SCH ×2 (06:51→13:11)
--- NOTE | 2018-11-04 07:10 | NUR ---
HAND-OFF: Report given to GUSTAVO Lenz.
--- NOTE | 2018-11-04 07:24 | NUR ---
NURSE NOTES: Patient alert x4, on room air, no sign of distress and shortness of breath; no sign of chest pain; IV RAC 20G and LAC 20G flushes well; patient feels nauseated, Zofran given by PM nurse, will keep monitoring and give Zofran as needed in due time; I offered patient Pam, patient refused, provided a pitcher of water; bed at lowest position, side rails up x2, breaks engaged; call light within reach; will keep monitoring.
--- NOTE | 2018-11-04 07:54 | NUR ---
NURSE NOTES: Patient's Blood Pressure is 182/90 Pulse 75, I communicated MD Vance regarding the matter, and waiting for order.
[2018-11-04 08:00] VITALS: BP 182/90
[2018-11-04] MEDS: Ciprofloxacin 500mg tab ORAL SCH (08:11)
[2018-11-04] MEDS: Pantoprazole Inj IVP SCH (08:11)
[2018-11-04] MEDS: Heparin 5000 units/ml inj SUBQ SCH (08:13)
--- NOTE | 2018-11-04 08:20 | NUR ---
NURSE NOTES: I received order from MD Vance regarding patient's high Blood Pressure; order carried out as order given. Will keep monitoring BP
--- NOTE | 2018-11-04 09:48 | General Progress Note ---
Assessment/Plan Problem List: (1) Gastroparesis due to DM ICD Codes: E11.43 - Type 2 diabetes mellitus with diabetic autonomic (poly) neuropathy; K31.84 - Gastroparesis SNOMED: 188151467 (2) Hypokalemia ICD Codes: E87.6 - Hypokalemia SNOMED: 63438031 (3) DM (diabetes mellitus) ICD Codes: E11.9 - Type 2 diabetes mellitus without complications SNOMED: 41333260 Qualifiers: Qualified Codes: E11.9 - Type 2 diabetes mellitus without complications (4) Cannabinoid hyperemesis syndrome ICD Codes: F12.988 - Cannabis use, unspecified with other cannabis-induced disorder SNOMED: 867519919, 209944971 Assessment/Plan: ct reviewed ppi on reg diet ok to dc GI stand point Subjective ROS Limited/Unobtainable: Yes Allergies: Coded Allergies: No Known Allergies (Unverified , 07/15/18) Subjective no abd pain no disrrhea no vomiting wants to eat Objective Last 24 Hour Vital Signs Date Time Temp Pulse Resp B/P (MAP) Pulse Ox O2 Delivery O2 Flow Rate FiO2 11/04/18 09:11 182/90 11/04/18 09:00 Room Air 11/04/18 08:00 99.0 75 17 182/90 (120) 99 11/04/18 05:00 97.8 68 16 150/78 (102) 99 11/04/18 00:00 97.8 63 16 114/57 (76) 99 11/03/18 21:00 Room Air 11/03/18 20:00 98.5 60 18 135/80 (98) 99 11/03/18 16:00 98.8 72 18 134/66 (88) 99 11/03/18 13:00 98.3 59 18 143/79 (100) 97 11/03/18 12:00 97.6 66 18 175/99 (124) 99 Intake and Output 11/03/18 11/04/18 18:59 06:59 Intake Total 400 ml 740 ml Balance 400 ml 740 ml Intake Oral 100 ml 740 ml IV Total 300 ml # Voids 3 3 # Bowel Movements 1 Laboratory Tests 11/04/18 05:40: White Blood Count 10.6, Red Blood Count 5.17, Hemoglobin 11.7L, Hematocrit 37.2 , Mean Corpuscular Volume 72L, Mean Corpuscular Hemoglobin 22.6L, Mean Corpuscular Hemoglobin Concent 31.4L, Red Cell Distribution Width 16.3H, Platelet Count 349, Mean Platelet Volume 6.3L, Neutrophils (%) (Auto) 73.9, Lymphocytes (%) (Auto) 18.0L, Monocytes (%) (Auto) 7.3, Eosinophils (%) (Auto) 0.3, Basophils (%) (Auto) 0.6, Sodium Level 138, Potassium Level 2.9L, Chloride Level 101, Carbon Dioxide Level 24, Anion Gap 13, Blood Urea Nitrogen 8, Creatinine 0.6, Estimat Glomerular Filtration Rate > 60, Glucose Level 120H, Calcium Level 8.4L Height (Feet): 5 Height (Inches): 4.00 Weight (Pounds): 155 General Appearance: alert EENT: normal ENT inspection Neck: supple Cardiovascular: normal rate Respiratory/Chest: decreased breath sounds Abdomen: normal bowel sounds, non tender, soft Extremities: non-tender Guillermo Dwyer MD Nov 04, 2018 09:48
[2018-11-04 10:30] VITALS: BP 121/77
--- NOTE | 2018-11-04 10:33 | NUR ---
NURSE NOTES: Patient's K 2.9 and MD Dwyer is aware. Waiting for order.
--- NOTE | 2018-11-04 11:20 | NUR ---
NURSE NOTES: I received order from MD Dwyer regarding patient's K 2.9; order carried out as order given; will keep monitoring.
--- NOTE | 2018-11-04 11:56 | Infectious Diseases Prog Note ---
Assessment/Plan Assessment/Plan Abx: Ceftriaxone x1 11/02 Assessment: Nausea, vomiting, abd pain Probable mild colitis -CT abd/p: Limited assessment of the GI tract, due to lack of enteric contrast administration. Equivocal mild scattered areas of colon wall thickening and slight infiltration of the pericolonic fat, doubtful significance but if real could indicate mild colitis changes. Correlate with clinical findings Mild distal esophageal wall thickening, also previously described, could indicate esophagitis. No acute process otherwise Mild hepatic hypoattenuation, consistent with fatty change. Stable 21 mm right adrenal nodule. Recommend further evaluation as previously recommended if not already undertaken. Colonic diverticulosis. No evidence of diverticulitis. Uterine fibroid, also previously reported. Bilateral renal cysts and subcentimeter low-attenuation lesion measuring 2 small to characterize. Degenerative spondylosis -Bcx NTD Afebrile Leukocytosis, SP -CXR: no acute process -u/a wbc 40-60, nit neg, leuk +3; ucx NTD Dm2 cannabis use Plan: -Cont PO CIpro and Flagyl #3/5 -f/u cx -Monitor CBC/CMP, temperatures Thank you for this consultation. Will continue to follow along with you. Discussed with RN. Subjective Allergies: Coded Allergies: No Known Allergies (Unverified , 07/15/18) Subjective afebrile leukocytosis resolved Bcx NTD Objective Vital Signs Last 24 Hour Vital Signs Date Time Temp Pulse Resp B/P (MAP) Pulse Ox O2 Delivery O2 Flow Rate FiO2 11/04/18 10:30 98.3 82 18 121/77 (92) 100 11/04/18 09:11 182/90 11/04/18 09:00 Room Air 11/04/18 08:00 99.0 75 17 182/90 (120) 99 11/04/18 05:00 97.8 68 16 150/78 (102) 99 11/04/18 00:00 97.8 63 16 114/57 (76) 99 11/03/18 21:00 Room Air 11/03/18 20:00 98.5 60 18 135/80 (98) 99 11/03/18 16:00 98.8 72 18 134/66 (88) 99 11/03/18 13:00 98.3 59 18 143/79 (100) 97 11/03/18 12:00 97.6 66 18 175/99 (124) 99 Height (Feet): 5 Height (Inches): 4.00 Weight (Pounds): 155 Objective General Appearance: well appearing, no apparent distress, alert Head: normocephalic, atraumatic Eyes: bilateral eye PERRL, bilateral eye EOMI ENT: uvula midline, dry mucus membranes Neck: supple, thyroid normal, supple/symm/no masses Respiratory: lungs clear, no respiratory distress, no retraction, no accessory muscle use Cardiovascular #1: normal peripheral pulses, regular rate, rhythm, no edema, no gallop, no murmur Gastrointestinal: non tender, soft, no guarding, no rebound Musculoskeletal: normal inspection Neurologic: alert, oriented x3 Psychiatric: mood/affect normal Skin: no rash, warm/dry Microbiology Date/Time Source Procedure Growth Status 11/02/18 09:30 Blood Blood Culture - Preliminary NO GROWTH AFTER 24 HOURS Resulted 11/02/18 09:15 Blood Blood Culture - Preliminary NO GROWTH AFTER 24 HOURS Resulted 11/02/18 13:51 Nasal Nares Left MRSA Culture - Final NO METHICILLIN RESISTANT STAPH AUREUS... Complete 11/02/18 08:35 Urine,Clean Catch Urine Culture - Preliminary Resulted 11/02/18 13:51 Rectum VRE Culture - Final NO VANCOMYCIN RESISTANT ENTEROCOCCUS ... Complete Laboratory Tests Test 11/04/18 05:40 White Blood Count 10.6 K/UL (4.8-10.8) Red Blood Count 5.17 M/UL (4.20-5.40) Hemoglobin 11.7 G/DL (12.0-16.0) L Hematocrit 37.2 % (37.0-47.0) Mean Corpuscular Volume 72 FL (80-99) L Mean Corpuscular Hemoglobin 22.6 PG (27.0-31.0) L Mean Corpuscular Hemoglobin Concent 31.4 G/DL (32.0-36.0) L Red Cell Distribution Width 16.3 % (11.6-14.8) H Platelet Count 349 K/UL (150-450) Mean Platelet Volume 6.3 FL (6.5-10.1) L Neutrophils (%) (Auto) 73.9 % (45.0-75.0) Lymphocytes (%) (Auto) 18.0 % (20.0-45.0) L Monocytes (%) (Auto) 7.3 % (1.0-10.0) Eosinophils (%) (Auto) 0.3 % (0.0-3.0) Basophils (%) (Auto) 0.6 % (0.0-2.0) Sodium Level 138 MMOL/L (136-145) Potassium Level 2.9 MMOL/L (3.5-5.1) L Chloride Level 101 MMOL/L (98-107) Carbon Dioxide Level 24 MMOL/L (21-32) Anion Gap 13 mmol/L (5-15) Blood Urea Nitrogen 8 mg/dL (7-18) Creatinine 0.6 MG/DL (0.55-1.30) Estimat Glomerular Filtration Rate > 60 mL/min (>60) Glucose Level 120 MG/DL (74-106) H Calcium Level 8.4 MG/DL (8.5-10.1) L Current Medications Medications (Trade) Dose Ordered Sig/Nicolas Route PRN Reason Start Time Stop Time Status Last Admin Dose Admin Acetaminophen (Tylenol) 650 mg Q4H PRN ORAL fever (temp>100.5F) 11/02/18 13:00 12/02/18 12:59 Ciprofloxacin (Cipro 500mg tab) 500 mg EVERY 12 HOURS ORAL 11/03/18 09:00 11/10/18 08:59 11/04/18 08:11 Clonidine HCl (Catapres Tab) 0.1 mg Q6H PRN ORAL For High Blood Pressure 11/04/18 08:30 12/04/18 08:29 11/04/18 09:11 Dextrose (Dextrose 50%) 25 ml Q30M PRN IV Hypoglycemia 11/02/18 13:00 12/02/18 12:59 Dextrose (Dextrose 50%) 50 ml Q30M PRN IV Hypoglycemia 11/02/18 13:00 12/02/18 12:59 Diphenhydramine HCl (Benadryl) 25 mg Q6H PRN ORAL Itching/Pruritis 11/02/18 13:00 12/02/18 12:59 Heparin Sodium (Porcine) (Heparin 5000 units/ml) 5,000 units EVERY 12 HOURS SUBQ 11/02/18 21:00 12/02/18 20:59 11/04/18 08:13 Metronidazole (Flagyl) 500 mg Q8HR ORAL 11/02/18 15:00 11/09/18 14:59 11/04/18 06:51 Morphine Sulfate (Morphine Sulfate) 2 mg Q4H PRN IVP severe Pain (Pain Scale 7-10) 11/02/18 13:00 11/09/18 12:59 Nitroglycerin (Ntg) 0.4 mg Q5M X 3 DOSES PRN SL Prn Chest Pain 11/02/18 13:00 12/02/18 12:59 Ondansetron HCl (Zofran) 4 mg Q6H PRN IVP Nausea & Vomiting 11/02/18 13:00 12/02/18 12:59 11/04/18 04:48 Pantoprazole (Protonix) 40 mg DAILY IVP 11/03/18 09:00 12/03/18 08:59 11/04/18 08:11 Polyethylene Glycol (Miralax) 17 gm HSPRN PRN ORAL Constipation 11/02/18 13:00 12/02/18 12:59 Potassium Chloride 100 ml @ 50 mls/hr Q1H IVPB 11/04/18 12:00 11/04/18 13:59 11/04/18 11:49 Temazepam (Restoril) 15 mg HSPRN PRN ORAL Insomnia 11/02/18 21:00 11/09/18 20:59 11/03/18 20:07 Mita Almaguer M.D. Nov 04, 2018 11:56
[2018-11-04 12:00] VITALS: BP 120/75
--- NOTE | 2018-11-04 12:58 | Pulmonology Progress Note ---
Assessment/Plan Problems: (1) Cannabinoid hyperemesis syndrome (2) Cannabis abuse (3) Gastroparesis due to DM (4) DM (diabetes mellitus) Assessment/Plan wbc normal no new complains sliding scale diabetic diet prescription written Subjective ROS Limited/Unobtainable: No Constitutional: Reports: no symptoms HEENT: Repors: no symptoms Allergies: Coded Allergies: No Known Allergies (Unverified , 07/15/18) Objective Last 24 Hour Vital Signs Date Time Temp Pulse Resp B/P (MAP) Pulse Ox O2 Delivery O2 Flow Rate FiO2 11/04/18 10:30 98.3 82 18 121/77 (92) 100 11/04/18 09:11 182/90 11/04/18 09:00 Room Air 11/04/18 08:00 99.0 75 17 182/90 (120) 99 11/04/18 05:00 97.8 68 16 150/78 (102) 99 11/04/18 00:00 97.8 63 16 114/57 (76) 99 11/03/18 21:00 Room Air 11/03/18 20:00 98.5 60 18 135/80 (98) 99 11/03/18 16:00 98.8 72 18 134/66 (88) 99 11/03/18 13:00 98.3 59 18 143/79 (100) 97 Intake and Output 11/03/18 11/04/18 18:59 06:59 Intake Total 400 ml 740 ml Balance 400 ml 740 ml Intake Oral 100 ml 740 ml IV Total 300 ml # Voids 3 3 # Bowel Movements 1 General Appearance: WD/WN HEENT: normocephalic, anicteric Respiratory/Chest: chest wall non-tender, normal breath sounds Cardiovascular: normal peripheral pulses, normal rate Abdomen: normal bowel sounds, no scars Microbiology Date/Time Source Procedure Growth Status 11/02/18 09:30 Blood Blood Culture - Preliminary NO GROWTH AFTER 24 HOURS Resulted 11/02/18 09:15 Blood Blood Culture - Preliminary NO GROWTH AFTER 24 HOURS Resulted 11/02/18 13:51 Nasal Nares Left MRSA Culture - Final NO METHICILLIN RESISTANT STAPH AUREUS... Complete 11/02/18 08:35 Urine,Clean Catch Urine Culture - Preliminary Resulted 11/02/18 13:51 Rectum VRE Culture - Final NO VANCOMYCIN RESISTANT ENTEROCOCCUS ... Complete Laboratory Tests 11/04/18 05:40: White Blood Count 10.6, Red Blood Count 5.17, Hemoglobin 11.7L, Hematocrit 37.2 , Mean Corpuscular Volume 72L, Mean Corpuscular Hemoglobin 22.6L, Mean Corpuscular Hemoglobin Concent 31.4L, Red Cell Distribution Width 16.3H, Platelet Count 349, Mean Platelet Volume 6.3L, Neutrophils (%) (Auto) 73.9, Lymphocytes (%) (Auto) 18.0L, Monocytes (%) (Auto) 7.3, Eosinophils (%) (Auto) 0.3, Basophils (%) (Auto) 0.6, Sodium Level 138, Potassium Level 2.9L, Chloride Level 101, Carbon Dioxide Level 24, Anion Gap 13, Blood Urea Nitrogen 8, Creatinine 0.6, Estimat Glomerular Filtration Rate > 60, Glucose Level 120H, Calcium Level 8.4L Current Medications Medications (Trade) Dose Ordered Sig/Nicolas Route PRN Reason Start Time Stop Time Status Last Admin Dose Admin Acetaminophen (Tylenol) 650 mg Q4H PRN ORAL fever (temp>100.5F) 11/02/18 13:00 12/02/18 12:59 Ciprofloxacin (Cipro 500mg tab) 500 mg EVERY 12 HOURS ORAL 11/03/18 09:00 11/10/18 08:59 11/04/18 08:11 Clonidine HCl (Catapres Tab) 0.1 mg Q6H PRN ORAL For High Blood Pressure 11/04/18 08:30 12/04/18 08:29 11/04/18 09:11 Dextrose (Dextrose 50%) 25 ml Q30M PRN IV Hypoglycemia 11/02/18 13:00 12/02/18 12:59 Dextrose (Dextrose 50%) 50 ml Q30M PRN IV Hypoglycemia 11/02/18 13:00 12/02/18 12:59 Diphenhydramine HCl (Benadryl) 25 mg Q6H PRN ORAL Itching/Pruritis 11/02/18 13:00 12/02/18 12:59 Heparin Sodium (Porcine) (Heparin 5000 units/ml) 5,000 units EVERY 12 HOURS SUBQ 11/02/18 21:00 12/02/18 20:59 11/04/18 08:13 Metronidazole (Flagyl) 500 mg Q8HR ORAL 11/02/18 15:00 11/09/18 14:59 11/04/18 06:51 Morphine Sulfate (Morphine Sulfate) 2 mg Q4H PRN IVP severe Pain (Pain Scale 7-10) 11/02/18 13:00 11/09/18 12:59 Nitroglycerin (Ntg) 0.4 mg Q5M X 3 DOSES PRN SL Prn Chest Pain 11/02/18 13:00 12/02/18 12:59 Ondansetron HCl (Zofran) 4 mg Q6H PRN IVP Nausea & Vomiting 11/02/18 13:00 12/02/18 12:59 11/04/18 04:48 Pantoprazole (Protonix) 40 mg DAILY IVP 11/03/18 09:00 12/03/18 08:59 11/04/18 08:11 Polyethylene Glycol (Miralax) 17 gm HSPRN PRN ORAL Constipation 11/02/18 13:00 12/02/18 12:59 Potassium Chloride 100 ml @ 50 mls/hr Q1H IVPB 11/04/18 12:00 11/04/18 13:59 11/04/18 11:49 Temazepam (Restoril) 15 mg HSPRN PRN ORAL Insomnia 11/02/18 21:00 11/09/18 20:59 11/03/18 20:07 Bailey Vance MD Nov 04, 2018 12:58
--- NOTE | 2018-11-04 15:56 | Internal Med Progress Note ---
Subjective Physician Name Marc Dalton Attending Physician Marc Dalton MD Current Medications Medications (Trade) Dose Ordered Sig/Nicolas Route PRN Reason Start Time Stop Time Status Last Admin Dose Admin Acetaminophen (Tylenol) 650 mg Q4H PRN ORAL fever (temp>100.5F) 11/02/18 13:00 12/02/18 12:59 Ciprofloxacin (Cipro 500mg tab) 500 mg EVERY 12 HOURS ORAL 11/03/18 09:00 11/10/18 08:59 11/04/18 08:11 Clonidine HCl (Catapres Tab) 0.1 mg Q6H PRN ORAL For High Blood Pressure 11/04/18 08:30 12/04/18 08:29 11/04/18 09:11 Dextrose (Dextrose 50%) 25 ml Q30M PRN IV Hypoglycemia 11/02/18 13:00 12/02/18 12:59 Dextrose (Dextrose 50%) 50 ml Q30M PRN IV Hypoglycemia 11/02/18 13:00 12/02/18 12:59 Diphenhydramine HCl (Benadryl) 25 mg Q6H PRN ORAL Itching/Pruritis 11/02/18 13:00 12/02/18 12:59 Heparin Sodium (Porcine) (Heparin 5000 units/ml) 5,000 units EVERY 12 HOURS SUBQ 11/02/18 21:00 12/02/18 20:59 11/04/18 08:13 Metronidazole (Flagyl) 500 mg Q8HR ORAL 11/02/18 15:00 11/09/18 14:59 11/04/18 13:11 Morphine Sulfate (Morphine Sulfate) 2 mg Q4H PRN IVP severe Pain (Pain Scale 7-10) 11/02/18 13:00 11/09/18 12:59 Nitroglycerin (Ntg) 0.4 mg Q5M X 3 DOSES PRN SL Prn Chest Pain 11/02/18 13:00 12/02/18 12:59 Ondansetron HCl (Zofran) 4 mg Q6H PRN IVP Nausea & Vomiting 11/02/18 13:00 12/02/18 12:59 11/04/18 04:48 Pantoprazole (Protonix) 40 mg DAILY IVP 11/03/18 09:00 12/03/18 08:59 11/04/18 08:11 Polyethylene Glycol (Miralax) 17 gm HSPRN PRN ORAL Constipation 11/02/18 13:00 12/02/18 12:59 Temazepam (Restoril) 15 mg HSPRN PRN ORAL Insomnia 11/02/18 21:00 11/09/18 20:59 11/03/18 20:07 Allergies: Coded Allergies: No Known Allergies (Unverified , 07/15/18) Subjective awake, alert, responsive, NAD, No abdominal pain no N/V Objective Last Vital Signs Date Time Temp Pulse Resp B/P (MAP) Pulse Ox O2 Delivery O2 Flow Rate FiO2 11/04/18 12:00 98.0 80 18 120/75 (90) 100 11/04/18 09:00 Room Air Laboratory Tests Test 11/04/18 05:40 White Blood Count 10.6 K/UL (4.8-10.8) Red Blood Count 5.17 M/UL (4.20-5.40) Hemoglobin 11.7 G/DL (12.0-16.0) L Hematocrit 37.2 % (37.0-47.0) Mean Corpuscular Volume 72 FL (80-99) L Mean Corpuscular Hemoglobin 22.6 PG (27.0-31.0) L Mean Corpuscular Hemoglobin Concent 31.4 G/DL (32.0-36.0) L Red Cell Distribution Width 16.3 % (11.6-14.8) H Platelet Count 349 K/UL (150-450) Mean Platelet Volume 6.3 FL (6.5-10.1) L Neutrophils (%) (Auto) 73.9 % (45.0-75.0) Lymphocytes (%) (Auto) 18.0 % (20.0-45.0) L Monocytes (%) (Auto) 7.3 % (1.0-10.0) Eosinophils (%) (Auto) 0.3 % (0.0-3.0) Basophils (%) (Auto) 0.6 % (0.0-2.0) Sodium Level 138 MMOL/L (136-145) Potassium Level 2.9 MMOL/L (3.5-5.1) L Chloride Level 101 MMOL/L (98-107) Carbon Dioxide Level 24 MMOL/L (21-32) Anion Gap 13 mmol/L (5-15) Blood Urea Nitrogen 8 mg/dL (7-18) Creatinine 0.6 MG/DL (0.55-1.30) Estimat Glomerular Filtration Rate > 60 mL/min (>60) Glucose Level 120 MG/DL (74-106) H Calcium Level 8.4 MG/DL (8.5-10.1) L Microbiology Date/Time Source Procedure Growth Status 11/02/18 09:30 Blood Blood Culture - Preliminary NO GROWTH AFTER 24 HOURS Resulted 11/02/18 09:15 Blood Blood Culture - Preliminary NO GROWTH AFTER 24 HOURS Resulted 11/02/18 13:51 Nasal Nares Left MRSA Culture - Final NO METHICILLIN RESISTANT STAPH AUREUS... Complete 11/02/18 08:35 Urine,Clean Catch Urine Culture - Preliminary Resulted 11/02/18 13:51 Rectum VRE Culture - Final NO VANCOMYCIN RESISTANT ENTEROCOCCUS ... Complete Intake and Output 11/03/18 11/04/18 18:59 06:59 Intake Total 400 ml 740 ml Balance 400 ml 740 ml Intake Oral 100 ml 740 ml IV Total 300 ml # Voids 3 3 # Bowel Movements 1 Objective Physical Exam General: No acute distress, awake and alert HEENT: NCAT, sclera anicteric, PERRL, EOMI. Neck: Supple, no significant jugular venous distention, Lungs: Good inspiratory effort, no accessory muscle use, clear to auscultation bilaterally, no Wheeze or Rales. Heart: Regular rate and rhythm, normal S1/S2, no murmurs/gallops Abdomen: soft, nontender, nondistended. Normoactive bowel sounds. / Rectal: Refused and deferred. Extremities: No Cyanosis , clubbing or edema. Neuro: A&O x 3, Able to move all extremities Skin: warm, no rashes or lesions Psych: Normal mood and affect Assessment/Plan Assessment/Plan (1) Cannabinoid hyperemesis syndrome (2) Cannabis abuse (3) Gastroparesis due to DM (4) DM (diabetes mellitus) Assessment/Plan wbc normal no new complains sliding scale diabetic diet DC [facility] in [facility] PO F/U with dr. Pinto office in 1 week. Marc Dalton MD Nov 04, 2018 15:56
[2018-11-04 16:00] VITALS: BP 132/80
[2018-11-04] MEDS ORDERED: D5 1/2NS 1000ml IV ONE (16:31)
--- NOTE | 2018-11-04 16:33 | NUR ---
NURSE NOTES: Patient left the floor accompanied by her daughter; patient was ambulating while leaving the floor; IV access and name tag removed upon discharge; patient's own medication given back to patient; patient was stable, no nausea and vomiting; BP stable; belonging list signed by patient and primary nursing care partner; MD's prescription medications given to patient; patient teaching given; printed material also given to patient;
--- NOTE | 2018-11-06 11:05 | Discharge Summary ---
Discharge Summary Discharge Summary _ DATE OF ADMISSION: 11/02/2018 DATE OF DISCHARGE: 11/04/2018 ADMITTING MD: Dr. Marc Dalton DISCHARGED BY: Dr. Bailey Vance CONSULTANTS: Dr. Bailey Almaguer. BRIEF HOSPITAL COURSE: Patient is a 48-year-old female, who presented with chief complaint of nausea and vomiting. Patient was admitted to [facility] on September 2018. She has history of cannabis use. Patient has history of intractable nausea and vomiting patient presented to [facility] ED complaining of 1 day history of intractable nausea and vomiting. She was unable to keep solids or liquids down. She also has epigastric abdominal pain. She has medical history significant for hypertension, type 2 diabetes, and GERD. On evaluation at the ED, blood work showed WBC 20. Hemoglobin hematocrit stable. Potassium 3.2. BUN was elevated to 24. Glucose 154. Lipase normal. Magnesium level 1.0. Lactic acid 1.4. Urinalyses showed 3+ leukocyte esterase , TNTC urine RBC, 30-40 urine WBC, 3+ protein, 1+ glucose, 4+ ketones. Urine toxicology screen was positive for THC. EKG showed sinus bradycardia with no ST elevations. CT of the abdomen and pelvis showed equivocal scattered areas of colonic wall thickening. Mild distal esophageal wall thickening. Head CT was negative. She was given ceftriaxone. Magnesium and potassium were repleted. She was then admitted for evaluation of cannabis hyperemesis syndrome , hypokalemia and UTI. She was admitted to medical floor. ID was consulted. She was started on p.o. ciprofloxacin and Flagyl for probable colitis. GI was consulted. Diet was advanced. She was given proton inhibitors. Blood glucose was monitored. She was given sliding scale. Hypertension was managed with amlodipine. She had persistent hypokalemia. She was given potassium supplements. Urine culture showed growth of mixed gram-positive organisms. Blood culture did not isolate any growth. She was tolerating diet. Patient was cleared for discharge home to continue Cipro and Flagyl p.o. To follow-up with Dr. Pinto office in a week. FINAL DIAGNOSES: Cannabinoid hyperemesis syndrome Cannabis use Gastroparesis likely diabetes mellitus Diabetes mellitus DISPOSITION: Patient was discharged home. DISCHARGE MEDICATIONS: Refer to Discharge Medication List. DISCHARGE INSTRUCTIONS: Follow-up in a week. I have been assigned to complete a discharge summary on this account, I was not involved with the patient's management.--MOE Nieto Jacqueline Robles NP Nov 06, 2018 11:05
--- NOTE | 2018-11-06 15:34 | Cardiology Report ---
APPROVED REPORT EKG Measurement Heart [id number] [id number] Sinus bradycardia Prolonged QT Abnormal ECG
== END 2018-11-04 16:32 | disposition home or self-care (01) | DRG 48 ==
LOC: EMR 09:00 → 3E 09:40 → EDBEDREQ 10:39
DX: E11.43 Type 2 diabetes mellitus with diabetic autonomic (poly)neuropathy (principal); K52.9 Noninfective gastroenteritis and colitis, unspecified; F12.188 Cannabis abuse with other cannabis-induced disorder; K31.84 Gastroparesis; E87.6 Hypokalemia; E83.42 Hypomagnesemia; E86.0 Dehydration; I10 Essential (primary) hypertension; K21.9 Gastro-esophageal reflux disease without esophagitis; Z79.84 Long term (current) use of oral hypoglycemic drugs
CPT/HCPCS: 36415; 70450; 71045; 74177; 80048; 80053; 80307; 81003; 82009; 82150; 82962; 83605; 83690; 83735; 84484; 85007; 85025; 85730; 87040; 87081; 87086; 93005; 96365; 96367; 96372; 96375; 99285; J2405; J8499

== ENCOUNTER 2018-11-06 06:22 | Emergency (ER) | payer MEDICAID ==
[~2018-11-06] VITALS: Ht 162.6 cm; Wt 70.3 kg
[~2018-11-06 06:22] MED LIST changes: +CIPROFLOXACIN500 M2 ORAL; +FLAGYL500 MG ORAL
--- NOTE | 2018-11-06 06:22 | NUR ---
ED Nurse Note: pt walked in c/o n/v/d since last night, pt reports she ate lunch but didn't eat dinner, took medication (metformin 1000mg, flagyl 500mg, and cipro 500mg) and started having sx. pt currently vomiting, noted clear yellow bile emesis. noted pt's [id number] at the bedside will cont monitor. ERMD notified.
[2018-11-06] MEDS ORDERED: Haloperidol 5mg/ml Inj IM ONE (06:30)
[2018-11-06] MEDS ORDERED: DiphenhydrAMINE 50mg/ml Inj IVP ONE (06:30)
[2018-11-06] MEDS ORDERED: D5NS 1,000 ML IV ONE (06:30)
[2018-11-06] MEDS ORDERED: Capsaicin 0.075% Cream TOPIC ONE (06:45)
--- NOTE | 2018-11-06 06:46 | Emergency Room Report ---
History of Present Illness General Chief Complaint: Vomiting Source: Patient, Medical Record Present Illness HPI 48-year-old female history of diabetes, hypertension presents with nausea vomiting, abdominal cramps x1 day, unknown aggravating alleviating factors, severity is moderate, constant, patient does endorse utilizing cannabis, denies any chest pain or shortness of breath she feels warm, no fevers, no cough no congestion, patient presents for evaluation Allergies: Coded Allergies: No Known Allergies (Unverified , 07/15/18) Patient History Past Medical History: see triage record Social History: Reports: drug use - Marijuana Reviewed Nursing Documentation: PMH: Agreed; PSxH: Agreed Nursing Documentation-PMH Past Medical History: No History, Except For Hx Cardiac Problems: No Hx Hypertension: No Hx Asthma: No Hx COPD: No Hx Diabetes: Yes - 2019 Hx Cancer: No Hx Gastrointestinal Problems: No Hx Dialysis: No Hx Neurological Problems: No Hx Cerebrovascular Accident: No Hx Seizures: No Review of Systems All Other Systems: negative except mentioned in HPI Physical Exam Vital Signs Date Time Temp Pulse Resp B/P (MAP) Pulse Ox O2 Delivery O2 Flow Rate FiO2 11/06/18 06:25 98.2 102 24 174/83 (113) 100 Room Air Sp02 EP Interpretation: reviewed, normal General Appearance: well appearing, no apparent distress, alert Head: normocephalic, atraumatic Eyes: bilateral eye PERRL, bilateral eye EOMI ENT: uvula midline, moist mucus membranes Neck: supple, thyroid normal, supple/symm/no masses Respiratory: lungs clear, no respiratory distress, no retraction, no accessory muscle use Cardiovascular #1: normal peripheral pulses, regular rate, rhythm, no edema, no gallop, no murmur Gastrointestinal: non tender, soft, no guarding, no rebound Musculoskeletal: normal inspection Neurologic: alert, oriented x3 Psychiatric: mood/affect normal Skin: no rash, warm/dry Medical Decision Making Diagnostic Impression: Primary Impression: Cannabinoid hyperemesis syndrome Additional Impression: Vomiting Qualified Codes: G43.A0 - Cyclical vomiting, not intractable ER Course 48-year-old female who was just admitted 11/02/2018 presents with acute nausea and vomiting, differential includes diverticulitis, cannabinoid hyperemesis syndrome, SBO, diabetic gastroparesis Patient with multiple positive urine toxicology for marijuana Abdomen is soft nontender reeval 6:54AM patient no longer vomiting after haldol and benadryl Reevaluation 7:22 AM, patient is now asymptomatic abdomen remains soft nontender Reevaluation 8:08 AM, patient is comfortable and wants to go home Laboratory Tests Test 11/06/18 04:32 11/06/18 06:20 11/06/18 06:26 11/06/18 07:32 Urine Color Pale yellow Urine Appearance Slightly cloudy Urine pH 5 (4.5-8.0) Urine Specific Divide 1.010 (1.005-1.035) Urine Protein 2+ (NEGATIVE) H Urine Glucose (UA) 4+ (NEGATIVE) H Urine Ketones 3+ (NEGATIVE) H Urine Blood 5+ (NEGATIVE) H Urine Nitrite Negative (NEGATIVE) Urine Bilirubin Negative (NEGATIVE) Urine Urobilinogen Normal MG/DL (0.0-1.0) Urine Leukocyte Esterase 1+ (NEGATIVE) H Urine RBC 60-80 /HPF (0 - 2) H Urine WBC 2-4 /HPF (0 - 2) Urine Squamous Epithelial Cells Few /LPF (NONE/OCC) Urine Bacteria Occasional /HPF (NONE) White Blood Count 14.9 K/UL (4.8-10.8) H Red Blood Count 5.83 M/UL (4.20-5.40) H Hemoglobin 13.0 G/DL (12.0-16.0) Hematocrit 41.3 % (37.0-47.0) Mean Corpuscular Volume 71 FL (80-99) L Mean Corpuscular Hemoglobin 22.3 PG (27.0-31.0) L Mean Corpuscular Hemoglobin Concent 31.5 G/DL (32.0-36.0) L Red Cell Distribution Width 16.0 % (11.6-14.8) H Platelet Count 450 K/UL (150-450) Mean Platelet Volume 6.6 FL (6.5-10.1) Neutrophils (%) (Auto) 84.0 % (45.0-75.0) H Lymphocytes (%) (Auto) 12.1 % (20.0-45.0) L Monocytes (%) (Auto) 3.3 % (1.0-10.0) Eosinophils (%) (Auto) 0.2 % (0.0-3.0) Basophils (%) (Auto) 0.4 % (0.0-2.0) Prothrombin Time 10.6 SEC (9.30-11.50) Prothrombin Time INR 1.0 (0.9-1.1) PTT 28 SEC (23-33) Sodium Level 136 MMOL/L (136-145) Potassium Level 3.3 MMOL/L (3.5-5.1) L Chloride Level 99 MMOL/L (98-107) Carbon Dioxide Level 20 MMOL/L (21-32) L Anion Gap 18 mmol/L (5-15) H Blood Urea Nitrogen 28 mg/dL (7-18) H Creatinine 1.1 MG/DL (0.55-1.30) Estimate Glomerular Filtration Rate 52.6 mL/min (>60) Glucose Level 202 MG/DL (74-106) H Calcium Level 9.6 MG/DL (8.5-10.1) Total Bilirubin 0.6 MG/DL (0.2-1.0) Aspartate Amino Transferase (AST) 20 U/L (15-37) Alanine Aminotransferase (ALT) 21 U/L (12-78) Alkaline Phosphatase 67 U/L (46-116) Troponin I 0.014 ng/mL (0.000-0.056) Total Protein 8.5 G/DL (6.4-8.2) H Albumin 4.1 G/DL (3.4-5.0) Globulin 4.4 g/dL Albumin/Globulin Ratio 0.9 (1.0-2.7) L Lipase 167 U/L (73-393) Venous Blood pH 7.495 Venous Blood Partial Pressure CO2 21.9 Venous Blood Partial Pressure O2 < 45.3 Venous Blood HCO3 16.5 Venous Blood Total Carbon Dioxide 21.9 Venous Bld O2 Saturation (Measured) 54.3 Venous Blood Oxygen Saturation 54.7 Venous Blood Base Excess -4.8 Methemoglobin 0.5 Sodium (Blood Gas) Pending Urine Opiates Screen Negative (NEGATIVE) Urine Barbiturates Screen Negative (NEGATIVE) Phencyclidine (PCP) Screen Negative (NEGATIVE) Urine Amphetamines Screen Negative (NEGATIVE) Urine Benzodiazepines Screen Negative (NEGATIVE) Urine Cocaine Screen Negative (NEGATIVE) Urine Marijuana (THC) Screen Positive (NEGATIVE) H EKG Diagnostic Results EKG Time: 06:35 EP Interpretation: NSR, rate 76, QTc 472, no acute ST elevations, normal axis Rhythm Strip Diag. Results Rhythm Strip Time: 06:45 EP Interpretation: yes Rate: 76 Rhythm: NSR, no PVC's, no ectopy Chest X-Ray Diagnostic Results Chest X-Ray Diagnostic Results : Chest X-Ray Ordered: Yes # of Views/Limited/Complete: 1 View Indication: Other - abdominal pain EP Interpretation: Yes Interpretation: no consolidation, no effusion, no pneumothorax, no acute cardiopulmonary disease Impression: No acute disease Electronically Signed by: Rogelio Virk MD Last Vital Signs Date Time Temp Pulse Resp B/P (MAP) Pulse Ox O2 Delivery O2 Flow Rate FiO2 11/06/18 06:25 98.2 102 24 174/83 (113) 100 Room Air Disposition: HOME, SELF-CARE Condition: Stable Scripts Ondansetron (Zofran) 4 Mg Tablet 4 MG ORAL Q8H PRN for Nausea & Vomiting, #10 TAB 0 Refills Prov: Rogelio Virk MD 11/06/18 Referrals: NOT CHOSEN IPA/MD,REFERRING (PCP) [facility] Patient Instructions: Cannabis Use Disorder, Nausea and Vomiting, Adult Additional Instructions: The patient was provided with discharge instructions, notified to follow-up with a primary care doctor and or specialist in the next 24-48 hours, and to return to the ED if they have worsening of their symptoms. Please note that this report is being documented using [employer] technology. This can lead to erroneous entry secondary to incorrect interpretation by the dictating instrument. Rogelio Virk MD Nov 06, 2018 06:46
[2018-11-06 06:59] VITALS: BP 175/86
--- NOTE | 2018-11-06 07:00 | NUR ---
ED Nurse Note: pt provided w/ warm blanket for comfort.
[2018-11-06 07:03] LABS: BASOPHILS % (AUTO) 0.4 % (0.0-2.0); EOSINOPHILS % (AUTO) 0.2 % (0.0-3.0); HEMATOCRIT 41.3 % (37.0-47.0); LYMPHOCYTES % (AUTO) 12.1 % (20.0-45.0); MEAN CORPUSCULAR VOLUME 71 FL (80-99); MONOCYTES % (AUTO) 3.3 % (1.0-10.0); PLATELET COUNT 450 K/UL (150-450); RED BLOOD COUNT 5.83 M/UL (4.20-5.40); WHITE BLOOD COUNT 14.9 K/UL (4.8-10.8)
--- NOTE | 2018-11-06 07:21 | NUR ---
HAND-OFF: Report given to GUSTAVO Caballero and endorsed care. pt currently resting at this time.
[2018-11-06 07:27] LABS: ANION GAP 18 mmol/L (5-15); BLOOD UREA NITROGEN 28 mg/dL (7-18); CALCIUM 9.6 MG/DL (8.5-10.1); CARBON DIOXIDE 20 MMOL/L (21-32); CHLORIDE 99 MMOL/L (98-107); CREATININE 1.1 MG/DL (0.55-1.30); POTASSIUM 3.3 MMOL/L (3.5-5.1); SODIUM 136 MMOL/L (136-145)
--- NOTE | 2018-11-06 07:30 | Diagnostic Imaging Report ---
EXAM: XR Chest, 1 View CLINICAL HISTORY: Abdominal pain. TECHNIQUE: Frontal view of the chest. COMPARISON: 11/02/18. FINDINGS: Lungs: The lungs are mildly hypoinflated. No definite airspace consolidation. No pulmonary edema. Pleural space: No pneumothorax. Heart: Unremarkable. No cardiomegaly. Mediastinum: No mediastinal widening or shift. Bones/joints: Unremarkable. IMPRESSION: No evidence of acute cardiopulmonary abnormality.
[2018-11-06 07:31] LABS: ALANINE AMINOTRANSFERASE 21 U/L (12-78); ALBUMIN 4.1 G/DL (3.4-5.0); ALBUMIN/GLOBULIN RATIO 0.9 (1.0-2.7); ALKALINE PHOSPHATASE 67 U/L (46-116); ASPARTATE AMINO TRANSFERASE 20 U/L (15-37); BILIRUBIN,TOTAL 0.6 MG/DL (0.2-1.0)
--- NOTE | 2018-11-06 07:32 | NUR ---
ED Nurse Note: Pt is on bed sleeping, easily arousable. Urine collected and sent to lab. Lung sounds even and un-labored. Pt able to speak in full senteces. Vital signs stable.
[2018-11-06] MEDS ORDERED: ZOFRAN4 MG ORAL (08:07)
[2018-11-06 08:10] LABS: APPEARANCE,URINE SLIGHTLY CLOUDY; BILIRUBIN, URINE NEGATIVE (NEGATIVE); COLOR,URINE PALE YELLOW; GLUCOSE, URINE (UA) 4+ (NEGATIVE); KETONES,URINE 3+ (NEGATIVE); LEUKOCYTE ESTERASE ,URINE 1+ (NEGATIVE); NITRITE,URINE NEGATIVE (NEGATIVE); PH,URINE 5 (4.5-8.0); PROTEIN,URINE 2+ (NEGATIVE); UROBILINOGEN,URINE NORMAL MG/DL (0.0-1.0)
[2018-11-06 08:16] VITALS: BP 123/60
--- NOTE | 2018-11-06 15:14 | Cardiology Report ---
APPROVED REPORT EKG Measurement Heart [id number] Normal sinus rhythm Normal ECG
== END 2018-11-06 08:16 | disposition home or self-care (01) ==
LOC: EMR 06:32
DX: G43.A0 Cyclical vomiting, in migraine, not intractable (principal); F12.988 Cannabis use, unspecified with other cannabis-induced disorder; E11.9 Type 2 diabetes mellitus without complications
CPT/HCPCS: 36415; 71045; 80053; 80307; 81003; 82962; 83690; 84484; 85025; 85610; 85730; 93005; 96361; 96374; 96375; J1200; J1630; S0028; Z7502; 99284